=== PATIENT | female | born 1935 | race Caucasian/White ===

== ENCOUNTER 2016-06-07 23:05 | Inpatient (IN) | payer MEDICARE, MEDICAID ==
[~2016-06-07] VITALS: Ht 160 cm; Wt 108.9 kg
[~2016-06-07 23:05] MED LIST: WARF4TAB40
[2016-06-07 23:40] LABS: BASOPHILS % 0.1 % (0.0-2.0); DIFFERENTIAL COMMENT 0; EOSINOPHILS % 0.8 % (0.0-5.0); HEMATOCRIT. 52.6 % (36.0-48.0); HEMOGLOBIN. 17.3 g/dL (12.0-16.0); LYMPHOCYTES % 21.6 % (20.0-50.0); MEAN CORPUSCULAR HGB CONC 32.9 g/dL (31.0-37.0); MEAN CORPUSCULAR VOLUME 100.3 fL (81.0-99.0); MEAN PLATELET VOLUME 11.7 fl (7.4-10.4); MONOCYTES % 8.9 % (2.0-8.0); NEUTROPHILS % 68.6 % (40.0-76.0); PLATELET 165 x1000/uL (130-400); RED BLOOD CELL COUNT 5.24 mill/uL (4.2-5.4); WHITE BLOOD COUNT 14.9 x1000/uL (4.5-11.0)
[2016-06-07 23:47] LABS: CHLORIDE 115 mEq/L (98-107); INDEX HEMOLYSI 2 (1-3); INDEX ICTERIC 1 (1-4); INDEX LIPEMIC 1 (1-3)
[2016-06-07 23:51] LABS: INR 1.2; PROTHROMBIN TIME 12.9 sec
[2016-06-07 23:55] LABS: ALANINE AMINOTRANSFERASE 21 IU/L (13-61); ALBUMIN 3.4 g/dL (3.4-5.0); ANION GAP 14; CALCIUM 8.5 mg/dL (8.5-10.1); CARBON DIOXIDE 26 mEq/L (21-32); LIPASE 141 IU/L (73-393); UREA NITROGEN BLOOD 33 mg/dL (7-21); eGFR 58 mL/min (>60)
[2016-06-08] MEDS ORDERED: INSULIN REGULAR (HUMULIN R) 300UNITS/3ML SUBCUT ONE ×2 (00:15→05:00)
[2016-06-08 01:04] LABS: CLARITY URINE CLOUDY (CLEAR); COLOR URINE YELLOW (YELLOW); GLUCOSE URINE 3+ (NEGATIVE); KETONES URINE NEGATIVE (NEGATIVE); LEUKOCYTE ESTERASE URINE 2+ (NEGATIVE); NITRITE URINE POSITIVE (NEGATIVE); OCCULT BLOOD URINE 1+ (NEGATIVE); PROTEIN URINE 1+ (NEGATIVE); SPECIFIC GRAVITY URINE 1.024 (1.005-1.030); UROBILINOGEN URINE 0.2 E.U./dL (0.2-1.0)
[2016-06-08] MEDS ORDERED: CEFTRIAXONE 2 G PREMIX 50 ML IV ONE (01:15)
[2016-06-08 01:45] LABS: BACTERIA URINE 3+; SQUAMOUS EPITHELIAL CELL URINE FEW /lpf (RARE/1+)
[2016-06-08 01:46] LABS: WBC URINE 25-50 /hpf (0-2)
[2016-06-08] MEDS ORDERED: FUROSEMIDE 40MG/4ML VIAL IVP ONE (02:30)
[2016-06-08 07:30] VITALS: BP 108/73
[2016-06-08 07:56] VITALS: BP 108/73
[2016-06-08] MEDS ORDERED: SODIUM CHLORIDE 0.9% 1,000 ML IV SCH (09:30)
[2016-06-08] MEDS ORDERED: DEXTROSE 50% WATER 50ML SYRINGE IV PRN (09:30)
[2016-06-08] MEDS ORDERED: LACT10SO6 MT (09:33)
[2016-06-08] MEDS ORDERED: PROT40 PO (09:33)
[2016-06-08] MEDS ORDERED: ASPI-864 PO (09:33)
[2016-06-08] MEDS ORDERED: CARV3.1242 PO (09:33)
[2016-06-08] MEDS ORDERED: MULT-1146 PO (09:33)
[2016-06-08] MEDS ORDERED: FURO-151 PO (09:33)
[2016-06-08] MEDS ORDERED: FURO-152 PO (09:33)
[2016-06-08] MEDS ORDERED: LOSA1TAB33 PO (09:33)
[2016-06-08] MEDS ORDERED: ATOR10TA69 PO (09:33)
[2016-06-08] MEDS ORDERED: DOCU-150 PO (09:33)
[2016-06-08] MEDS ORDERED: DIVAL250 PO (09:33)
[2016-06-08] MEDS: ENOXAPARIN 30MG/0.3ML SYR SUBCUT SCH ×2 (09:55→21:25)
[2016-06-08] MEDS: MULTIVITAMINS,THER W-MINERALS TABLET PO SCH ×2 (10:00→11:25)
[2016-06-08] MEDS: INSULIN LISPRO 100 UNITS/ML SUBCUT SCH ×4 (10:01→21:31)
[2016-06-08] MEDS: ASPIRIN 81MG EC TABLET PO SCH (11:24)
[2016-06-08] MEDS: DIVALPROEX SODIUM 250MG ER TABLET PO SCH ×2 (11:25→21:24)
[2016-06-08 12:00] VITALS: BP 115/68
[2016-06-08] MEDS ORDERED: NON PO (12:26)
[2016-06-08] MEDS ORDERED: NA PHOS,M-B/NA PHOS,DI-BA ENEMA 118ML PR SCH (12:30)
[2016-06-08] MEDS: BLOOD SUGAR DIAGNOSTIC STRIP TEST SCH ×3 (12:40→21:25)
[2016-06-08 16:00] VITALS: BP 120/77
[2016-06-08] MEDS: SODIUM CHLORIDE 0.45% 1,000 ML IV SCH (16:00)
[2016-06-08] MEDS: DOCUSATE SODIUM 100MG CAPSULE PO SCH (17:22)
[2016-06-08 20:00] VITALS: BP 109/68
[2016-06-08] MEDS: ATORVASTATIN CALCIUM 10MG TABLET PO SCH (21:24)
[2016-06-08] MEDS: CARVEDILOL 3.125 MG TABLET PO SCH (21:24)
[2016-06-08] MEDS: INSULIN DETEMIR UD 100 UNITS/ML SYR SUBCUT SCH (21:33)
[2016-06-09] VITALS (28 sets, daily range): BP systolic 63–123; BP diastolic 24–109
[2016-06-09] MEDS ORDERED: CEFTRIAXONE 1 G PREMIX 50 ML IV SCH ×2 (03:00)
[2016-06-09 06:37] LABS: BASOPHILS % 0.8 % (0.0-2.0); EOSINOPHILS % 1.4 % (0.0-5.0); HEMATOCRIT. 45.5 % (36.0-48.0); HEMOGLOBIN. 15.2 g/dL (12.0-16.0); LYMPHOCYTES % 16.7 % (20.0-50.0); MEAN CORPUSCULAR HGB CONC 33.3 g/dL (31.0-37.0); MONOCYTES % 7.4 % (2.0-8.0); NEUTROPHILS % 73.7 % (40.0-76.0); PLATELET 118 x1000/uL (130-400); RED BLOOD CELL COUNT 4.59 mill/uL (4.2-5.4); RED CELL DISTRIBUTION WIDTH 13.4 % (11.6-14.6); WHITE BLOOD COUNT 11.8 x1000/uL (4.5-11.0)
[2016-06-09 06:50] LABS: CALCIUM 7.2 mg/dL (8.5-10.1)
[2016-06-09] MEDS: PANTOPRAZOLE 40MG DR TABLET PO SCH (07:40)
[2016-06-09] MEDS ORDERED: HYDROCHLOROTHIAZIDE 12.5MG CAPSULE PO SCH (09:00)
[2016-06-09] MEDS ORDERED: FUROSEMIDE 20MG TABLET PO SCH (09:00)
[2016-06-09] MEDS ORDERED: FUROSEMIDE 40MG/4ML VIAL IVP SCH (09:00)
[2016-06-09] MEDS ORDERED: FUROSEMIDE 40MG TABLET PO SCH (09:00)
[2016-06-09 09:22] LABS: AMMONIA 36 uMol/L (<32); INDEX HEMOLYSI 3 (1-3)
[2016-06-09] MEDS: ASPIRIN 81MG EC TABLET PO SCH (09:28)
[2016-06-09] MEDS: DOCUSATE SODIUM 100MG CAPSULE PO SCH ×2 (09:28→17:00)
[2016-06-09] MEDS: LOSARTAN POTASSIUM 100 MG TABLET PO SCH (09:28)
[2016-06-09] MEDS: MULTIVITAMINS,THER W-MINERALS TABLET PO SCH (09:28)
[2016-06-09] MEDS: CARVEDILOL 3.125 MG TABLET PO SCH ×2 (09:28→19:57)
[2016-06-09] MEDS: DIVALPROEX SODIUM 250MG ER TABLET PO SCH (09:28)
[2016-06-09] MEDS: ENOXAPARIN 30MG/0.3ML SYR SUBCUT SCH ×2 (09:29→21:10)
[2016-06-09 09:32] LABS: T3 FREE 1.66 pg/ml (2.18-3.98); T4 FREE 1.05 ng/dL (0.76-1.46); THYROID STIMULATING HORMONE 0.77 uIU/mL (0.36-3.74)
[2016-06-09 09:34] LABS: INDEX HEMOLYSI 4 (1-3)
[2016-06-09] MEDS: INSULIN LISPRO 100 UNITS/ML SUBCUT SCH ×4 (09:45→21:10)
[2016-06-09] MEDS: INSULIN DETEMIR UD 100 UNITS/ML SYR SUBCUT SCH ×2 (10:23→21:18)
[2016-06-09] MEDS: SODIUM CHLORIDE 0.45% 1,000 ML IV SCH (10:26)
[2016-06-09] MEDS ORDERED: POTASSIUM CHLORIDE INJ 40 MEQ in DEXT 5% WATER 250 ML IV SCH (10:30)
[2016-06-09 10:51] LABS: FOLIC ACID (FOLATE) SERUM > 20.00 ng/mL (>5.38); VITAMIN B12 SERUM 969 pg/mL (211-911)
[2016-06-09 11:06] LABS: PHOSPHORUS 4.5 mg/dL (2.5-4.9)
[2016-06-09 11:16] LABS: MAGNESIUM 2.7 mg/dL (1.8-2.4)
[2016-06-09] MEDS: BLOOD SUGAR DIAGNOSTIC STRIP TEST SCH ×3 (12:40→21:02)
[2016-06-09] MEDS ORDERED: SODIUM CHLORIDE 0.9% 1,000 ML IV SCH (16:15)
[2016-06-09] MEDS ORDERED: SODIUM CHLORIDE 0.9% 1000ML BAG (SEPSIS BOLUS) IV ONE (16:15)
[2016-06-09 16:30] LABS: BG BASE EXCESS -2.7 mmol/L (-2.0-2.0); BG DEOXYHEMOGLOBIN 1.5 % (0.0-5.0); BG FRACTION INSPIRED OXYGEN 40; BG HCO3 ACT 21.2 mmol/L (22.0-26.0); BG METHEMOGLOBIN 0.3 % (0.0-1.5); BG OXYGEN SATURATION 98.5 % (92.0-98.5); BG OXYHEMOGLOBIN 97.2 % (94.0-97.0); BG PCO2 34.4 mmHg (35.0-45.0); BG PH 7.407 (7.350-7.450); BG PO2 128.9 mmHg (75.0-100.0); BG SAMPLE SITE RIGHT BRACHIAL; BG TOTAL HEMOGLOBIN 14.4 g/dL (12.0-18.0); BG VENT MODE MASK - SIMPLE
[2016-06-09 18:11] LABS: EOSINOPHILS % 0.6 % (0.0-5.0); HEMATOCRIT. 43.3 % (36.0-48.0); HEMOGLOBIN. 14.5 g/dL (12.0-16.0); LYMPHOCYTES % 15.4 % (20.0-50.0); MEAN CORPUSCULAR HEMOGLOBIN 32.9 pg (28.0-32.0); MEAN CORPUSCULAR HGB CONC 33.4 g/dL (31.0-37.0); MEAN CORPUSCULAR VOLUME 98.4 fL (81.0-99.0); MEAN PLATELET VOLUME 11.7 fl (7.4-10.4); MONOCYTES % 7.2 % (2.0-8.0); NEUTROPHILS % 75.8 % (40.0-76.0); PLATELET 133 x1000/uL (130-400); RED BLOOD CELL COUNT 4.41 mill/uL (4.2-5.4); RED CELL DISTRIBUTION WIDTH 13.4 % (11.6-14.6); WHITE BLOOD COUNT 13.3 x1000/uL (4.5-11.0)
[2016-06-09 18:21] LABS: CALCIUM 7.2 mg/dL (8.5-10.1)
[2016-06-09] MEDS: NOREPINEPHRINE 4 MG in DEXT 5% WATER 246 ML IV PRN (18:22)
[2016-06-09] MEDS: ATORVASTATIN CALCIUM 10MG TABLET PO SCH (21:08)
[2016-06-09] MEDS: CEFEPIME 2,000 MG in DEXT 5% WATER 100 ML IV SCH (21:53)
[2016-06-09] MEDS: METRONIDAZOLE 500 MG PREMIX 100 ML IV SCH (22:56)
[2016-06-10] VITALS (91 sets, daily range): BP systolic 78–136; BP diastolic 25–97
[2016-06-10] MEDS ORDERED: VANCOMYCIN 1500MG in DEXTROSE 5% WATER 250ML IV NR ×2
[2016-06-10] MEDS: NOREPINEPHRINE 4 MG in DEXT 5% WATER 246 ML IV PRN (04:02)
[2016-06-10] MEDS: METRONIDAZOLE 500 MG PREMIX 100 ML IV SCH ×3 (05:10→21:17)
[2016-06-10] MEDS: SODIUM CHLORIDE 0.45% 1,000 ML IV SCH ×2 (05:11→17:30)
[2016-06-10 05:34] LABS: BASOPHILS % 0.4 % (0.0-2.0); EOSINOPHILS % 1.4 % (0.0-5.0); HEMATOCRIT. 43.4 % (36.0-48.0); HEMOGLOBIN. 14.3 g/dL (12.0-16.0); LYMPHOCYTES % 20.7 % (20.0-50.0); MEAN CORPUSCULAR HEMOGLOBIN 32.9 pg (28.0-32.0); MEAN CORPUSCULAR VOLUME 99.7 fL (81.0-99.0); MEAN PLATELET VOLUME 12.2 fl (7.4-10.4); MONOCYTES % 10.7 % (2.0-8.0); NEUTROPHILS % 66.8 % (40.0-76.0); PLATELET 130 x1000/uL (130-400); RED BLOOD CELL COUNT 4.35 mill/uL (4.2-5.4); RED CELL DISTRIBUTION WIDTH 13.9 % (11.6-14.6); WHITE BLOOD COUNT 13.4 x1000/uL (4.5-11.0)
[2016-06-10 05:48] LABS: AMMONIA 23 uMol/L (<32); INDEX HEMOLYSI 3 (1-3)
[2016-06-10 06:28] LABS: CALCIUM 6.9 mg/dL (8.5-10.1); MAGNESIUM 2.9 mg/dL (1.8-2.4); PHOSPHORUS 4.5 mg/dL (2.5-4.9)
[2016-06-10 07:43] LABS: CREATINE KINASE 754 IU/L (26-192); INDEX HEMOLYSI 2 (1-3)
[2016-06-10] MEDS: BLOOD SUGAR DIAGNOSTIC STRIP TEST SCH ×4 (07:50→21:04)
[2016-06-10] MEDS: INSULIN LISPRO 100 UNITS/ML SUBCUT SCH ×4 (08:20→21:19)
[2016-06-10] MEDS: CARVEDILOL 3.125 MG TABLET PO SCH ×2 (09:00→21:00)
[2016-06-10] MEDS ORDERED: DIVALPROEX SODIUM 250MG DR TABLET PO SCH (09:00)
[2016-06-10] MEDS: LOSARTAN POTASSIUM 100 MG TABLET PO SCH (09:00)
[2016-06-10] MEDS: CEFEPIME 2,000 MG in DEXT 5% WATER 100 ML IV SCH ×2 (09:58→21:17)
[2016-06-10] MEDS: PANTOPRAZOLE 40MG DR TABLET PO SCH (09:59)
[2016-06-10] MEDS: MULTIVITAMINS,THER W-MINERALS TABLET PO SCH (09:59)
[2016-06-10] MEDS: DOCUSATE SODIUM 100MG CAPSULE PO SCH ×2 (09:59→17:00)
[2016-06-10] MEDS: ENOXAPARIN 30MG/0.3ML SYR SUBCUT SCH ×2 (09:59→21:16)
[2016-06-10] MEDS ORDERED: FLUCONAZOLE 200 MG/100ML BAG 100 ML IV SCH (10:00)
[2016-06-10] MEDS: ASPIRIN 81MG EC TABLET PO SCH (10:00)
[2016-06-10] MEDS: INSULIN DETEMIR UD 100 UNITS/ML SYR SUBCUT SCH ×2 (10:02→21:19)
[2016-06-10] MEDS ORDERED: POTASSIUM CHLORIDE INJ 40 MEQ in DEXT 5% WATER 500 ML IV SCH (11:00)
[2016-06-10] MEDS: VALPROATE SODIUM 500 MG in SODIUM CHLORIDE 0.9% 100 ML IV SCH (11:42)
[2016-06-10] MEDS: MICAFUNGIN 100MG in NORMAL SALINE 100ML IV SCH (11:45)
[2016-06-10] MEDS: ATORVASTATIN CALCIUM 10MG TABLET PO SCH (21:16)
[2016-06-11] VITALS (69 sets, daily range): BP systolic 93–149; BP diastolic 36–85
[2016-06-11] MEDS: VALPROATE SODIUM 500 MG in SODIUM CHLORIDE 0.9% 100 ML IV SCH ×3 (00:28→22:38)
[2016-06-11] MEDS: SODIUM CHLORIDE 0.45% 1,000 ML IV SCH (05:40)
[2016-06-11] MEDS: METRONIDAZOLE 500 MG PREMIX 100 ML IV SCH ×3 (05:40→21:04)
[2016-06-11 05:46] LABS: BASOPHILS % 0.3 % (0.0-2.0); EOSINOPHILS % 1.8 % (0.0-5.0); HEMATOCRIT. 40.2 % (36.0-48.0); HEMOGLOBIN. 13.7 g/dL (12.0-16.0); LYMPHOCYTES % 15.5 % (20.0-50.0); MEAN CORPUSCULAR HEMOGLOBIN 33.3 pg (28.0-32.0); MEAN CORPUSCULAR HGB CONC 34.1 g/dL (31.0-37.0); MEAN CORPUSCULAR VOLUME 97.5 fL (81.0-99.0); MEAN PLATELET VOLUME 12.4 fl (7.4-10.4); MONOCYTES % 9.9 % (2.0-8.0); NEUTROPHILS % 72.5 % (40.0-76.0); PLATELET 101 x1000/uL (130-400); RED BLOOD CELL COUNT 4.12 mill/uL (4.2-5.4); RED CELL DISTRIBUTION WIDTH 13.6 % (11.6-14.6); WHITE BLOOD COUNT 7.2 x1000/uL (4.5-11.0)
[2016-06-11 06:02] LABS: ANION GAP 17; CARBON DIOXIDE 20 mEq/L (21-32); CHLORIDE 109 mEq/L (98-107); INDEX HEMOLYSI 2 (1-3); INDEX ICTERIC 1 (1-4); INDEX LIPEMIC 1 (1-3); UREA NITROGEN BLOOD 27 mg/dL (7-21); eGFR > 60 mL/min (>60)
[2016-06-11] MEDS ORDERED: POTASSIUM CHLORIDE INJ 40 MEQ in DEXT 5% WATER 250 ML IV SCH (07:30)
[2016-06-11] MEDS: BLOOD SUGAR DIAGNOSTIC STRIP TEST SCH ×4 (07:50→21:03)
[2016-06-11] MEDS: CARVEDILOL 3.125 MG TABLET PO SCH ×2 (09:00→20:50)
[2016-06-11] MEDS: LOSARTAN POTASSIUM 100 MG TABLET PO SCH (09:00)
[2016-06-11] MEDS: CEFEPIME 2,000 MG in DEXT 5% WATER 100 ML IV SCH ×2 (09:47→21:03)
[2016-06-11] MEDS: ENOXAPARIN 30MG/0.3ML SYR SUBCUT SCH ×2 (09:48→21:03)
[2016-06-11] MEDS: INSULIN LISPRO 100 UNITS/ML SUBCUT SCH ×4 (09:49→21:02)
[2016-06-11] MEDS: INSULIN DETEMIR UD 100 UNITS/ML SYR SUBCUT SCH ×2 (09:50→22:42)
[2016-06-11] MEDS: DOCUSATE SODIUM 100MG CAPSULE PO SCH ×2 (09:50→17:22)
[2016-06-11] MEDS: ASPIRIN 81MG EC TABLET PO SCH (09:50)
[2016-06-11] MEDS: MULTIVITAMINS,THER W-MINERALS TABLET PO SCH (09:50)
[2016-06-11] MEDS: PANTOPRAZOLE 40MG DR TABLET PO SCH (09:50)
[2016-06-11] MEDS: MICAFUNGIN 100MG in NORMAL SALINE 100ML IV SCH (11:20)
[2016-06-11] MEDS ORDERED: VANCOMYCIN 1 G PREMIX 200 ML IV SCH ×2 (13:00→16:00)
[2016-06-11 17:20] LABS: ANTI-NUCLEAR ANTIBODIES DIRECT Negative (Negative)
[2016-06-11] MEDS: ATORVASTATIN CALCIUM 10MG TABLET PO SCH (21:03)
[2016-06-12] VITALS (47 sets, daily range): BP systolic 98–133; BP diastolic 47–64
[2016-06-12] MEDS: SODIUM CHLORIDE 0.45% 1,000 ML IV SCH ×2 (02:10→21:51)
[2016-06-12 05:58] LABS: BASOPHILS % 0.3 % (0.0-2.0); HEMATOCRIT. 39.6 % (36.0-48.0); HEMOGLOBIN. 13.5 g/dL (12.0-16.0); LYMPHOCYTES % 16.7 % (20.0-50.0); MEAN CORPUSCULAR HEMOGLOBIN 33.5 pg (28.0-32.0); MEAN CORPUSCULAR HGB CONC 34.1 g/dL (31.0-37.0); MEAN CORPUSCULAR VOLUME 98.1 fL (81.0-99.0); MEAN PLATELET VOLUME 12.7 fl (7.4-10.4); MONOCYTES % 11.6 % (2.0-8.0); NEUTROPHILS % 69.4 % (40.0-76.0); PLATELET 99 x1000/uL (130-400); RED BLOOD CELL COUNT 4.04 mill/uL (4.2-5.4); RED CELL DISTRIBUTION WIDTH 13.5 % (11.6-14.6); WHITE BLOOD COUNT 6.5 x1000/uL (4.5-11.0)
[2016-06-12 06:19] LABS: ANION GAP 14; CALCIUM 7.6 mg/dL (8.5-10.1); CARBON DIOXIDE 22 mEq/L (21-32); CHLORIDE 111 mEq/L (98-107); INDEX HEMOLYSI 2 (1-3); INDEX ICTERIC 1 (1-4); INDEX LIPEMIC 1 (1-3); MAGNESIUM 2.7 mg/dL (1.8-2.4); PHOSPHORUS 1.6 mg/dL (2.5-4.9); UREA NITROGEN BLOOD 13 mg/dL (7-21); eGFR > 60 mL/min (>60)
[2016-06-12] MEDS: METRONIDAZOLE 500 MG PREMIX 100 ML IV SCH ×3 (06:39→21:48)
[2016-06-12] MEDS ORDERED: POTASSIUM PHOS,M-BASIC-D-BASIC 20 MMOL in DEXT 5% WATER 243.3333 ML IV ONE (07:30)
[2016-06-12 08:00] LABS: BG BASE EXCESS -4.5 mmol/L (-2.0-2.0); BG CARBOXYHEMOGLOBIN 0.4 % (0.5-1.5); BG DEOXYHEMOGLOBIN 0.9 % (0.0-5.0); BG FRACTION INSPIRED OXYGEN 40; BG METHEMOGLOBIN 0.3 % (0.0-1.5); BG OXYGEN SATURATION 99.1 % (92.0-98.5); BG OXYHEMOGLOBIN 98.4 % (94.0-97.0); BG PCO2 34.9 mmHg (35.0-45.0); BG PH 7.375 (7.350-7.450); BG PO2 172.1 mmHg (75.0-100.0); BG SAMPLE SITE LEFT BRACHIAL; BG TOTAL HEMOGLOBIN 13.8 g/dL (12.0-18.0); BG VENT MODE MASK - SIMPLE
[2016-06-12] MEDS: CARVEDILOL 3.125 MG TABLET PO SCH ×2 (08:09→21:00)
[2016-06-12] MEDS: BLOOD SUGAR DIAGNOSTIC STRIP TEST SCH ×4 (08:09→21:42)
[2016-06-12] MEDS: LOSARTAN POTASSIUM 100 MG TABLET PO SCH (08:09)
[2016-06-12] MEDS: ENOXAPARIN 30MG/0.3ML SYR SUBCUT SCH ×2 (08:31→21:00)
[2016-06-12] MEDS: ASPIRIN 81MG EC TABLET PO SCH (08:31)
[2016-06-12] MEDS: DOCUSATE SODIUM SUGAR FREE 100MG/10ML UDC NG SCH ×2 (09:01→16:47)
[2016-06-12] MEDS: PANTOPRAZOLE 40MG DR TABLET PO SCH (09:01)
[2016-06-12] MEDS: INSULIN LISPRO 100 UNITS/ML SUBCUT SCH ×4 (09:01→21:50)
[2016-06-12] MEDS: MULTIVITAMINS,THER W-MINERALS TABLET PO SCH (09:01)
[2016-06-12] MEDS: CEFEPIME 2,000 MG in DEXT 5% WATER 100 ML IV SCH ×2 (09:01→21:48)
[2016-06-12] MEDS: MICAFUNGIN 100MG in NORMAL SALINE 100ML IV SCH (10:07)
[2016-06-12] MEDS: INSULIN DETEMIR UD 100 UNITS/ML SYR SUBCUT SCH ×2 (10:07→22:54)
[2016-06-12] MEDS: VANCOMYCIN 1250MG in DEXTROSE 5% WATER 250ML IV SCH (11:33)
[2016-06-12] MEDS: VALPROATE SODIUM 500 MG in SODIUM CHLORIDE 0.9% 100 ML IV SCH ×2 (11:37→22:53)
[2016-06-12] MEDS: ATORVASTATIN CALCIUM 10MG TABLET PO SCH (21:49)
[2016-06-13] VITALS (32 sets, daily range): BP systolic 100–140; BP diastolic 35–62
[2016-06-13 05:23] LABS: BASOPHILS % 0.2 % (0.0-2.0); EOSINOPHILS % 2.4 % (0.0-5.0); HEMATOCRIT. 28.9 % (36.0-48.0); HEMOGLOBIN. 9.9 g/dL (12.0-16.0); LYMPHOCYTES % 19.8 % (20.0-50.0); MEAN CORPUSCULAR HEMOGLOBIN 33.8 pg (28.0-32.0); MEAN CORPUSCULAR HGB CONC 34.4 g/dL (31.0-37.0); MEAN CORPUSCULAR VOLUME 98.4 fL (81.0-99.0); MEAN PLATELET VOLUME 12.3 fl (7.4-10.4); MONOCYTES % 13.7 % (2.0-8.0); NEUTROPHILS % 63.9 % (40.0-76.0); PLATELET 77 x1000/uL (130-400); RED BLOOD CELL COUNT 2.94 mill/uL (4.2-5.4); RED CELL DISTRIBUTION WIDTH 13.6 % (11.6-14.6); WHITE BLOOD COUNT 4.6 x1000/uL (4.5-11.0)
[2016-06-13 05:42] LABS: ANION GAP 11; CALCIUM 6.4 mg/dL (8.5-10.1); CARBON DIOXIDE 24 mEq/L (21-32); CHLORIDE 114 mEq/L (98-107); INDEX HEMOLYSI 2 (1-3); INDEX ICTERIC 1 (1-4); INDEX LIPEMIC 1 (1-3); MAGNESIUM 2.1 mg/dL (1.8-2.4); PHOSPHORUS 1.5 mg/dL (2.5-4.9); UREA NITROGEN BLOOD 9 mg/dL (7-21); VALPROIC ACID 31.1 ug/mL (50-100); eGFR > 60 mL/min (>60)
[2016-06-13] MEDS: METRONIDAZOLE 500 MG PREMIX 100 ML IV SCH ×3 (05:54→21:34)
[2016-06-13] MEDS ORDERED: POTASSIUM PHOS,M-BASIC-D-BASIC 20 MMOL in DEXT 5% WATER 243.3333 ML IV SCH (07:00)
[2016-06-13] MEDS: BLOOD SUGAR DIAGNOSTIC STRIP TEST SCH ×4 (07:50→21:12)
[2016-06-13] MEDS: ENOXAPARIN 30MG/0.3ML SYR SUBCUT SCH ×2 (09:00→21:00)
[2016-06-13] MEDS: ASPIRIN 81MG EC TABLET PO SCH (09:00)
[2016-06-13] MEDS: PANTOPRAZOLE 40MG DR TABLET PO SCH (09:56)
[2016-06-13] MEDS: CARVEDILOL 3.125 MG TABLET PO SCH ×2 (09:56→21:34)
[2016-06-13] MEDS: DOCUSATE SODIUM SUGAR FREE 100MG/10ML UDC NG SCH ×2 (09:56→17:49)
[2016-06-13] MEDS: MULTIVITAMINS,THER W-MINERALS TABLET PO SCH (09:56)
[2016-06-13] MEDS: VANCOMYCIN 1250MG in DEXTROSE 5% WATER 250ML IV SCH (09:56)
[2016-06-13] MEDS: LOSARTAN POTASSIUM 100 MG TABLET PO SCH (09:56)
[2016-06-13] MEDS: CEFEPIME 2,000 MG in DEXT 5% WATER 100 ML IV SCH ×2 (09:57→22:00)
[2016-06-13] MEDS: INSULIN DETEMIR UD 100 UNITS/ML SYR SUBCUT SCH ×2 (09:58→21:38)
[2016-06-13] MEDS: INSULIN LISPRO 100 UNITS/ML SUBCUT SCH ×4 (10:06→21:37)
[2016-06-13] MEDS: VALPROATE SODIUM 500 MG in SODIUM CHLORIDE 0.9% 100 ML IV SCH ×2 (10:08→17:48)
[2016-06-13] MEDS ORDERED: CALCIUM CHLORIDE 1,000 MG in DEXT 5% WATER 90 ML IV NR (10:30)
[2016-06-13 11:37] LABS: HEMOGLOBIN 13.1 g/dL (12.0-16.0); MEAN CORPUSCULAR HEMOGLOBIN 33.1 pg (28.0-32.0); MEAN CORPUSCULAR HGB CONC 33.5 g/dL (31.0-37.0); MEAN CORPUSCULAR VOLUME 98.7 fL (81.0-99.0); PLATELET 106 x1000/uL (130-400); RED BLOOD CELL COUNT 3.95 mill/uL (4.2-5.4); RED CELL DISTRIBUTION WIDTH 13.6 % (11.6-14.6); WHITE BLOOD COUNT 5.8 x1000/uL (4.5-11.0)
[2016-06-13] MEDS: MICAFUNGIN 100MG in NORMAL SALINE 100ML IV SCH (12:52)
[2016-06-13] MEDS: SODIUM CHLORIDE 0.45% 1,000 ML IV SCH (12:52)
[2016-06-13] MEDS: ATORVASTATIN CALCIUM 10MG TABLET PO SCH (21:33)
[2016-06-14] VITALS (16 sets, daily range): BP systolic 102–127; BP diastolic 45–65
[2016-06-14] MEDS: VALPROATE SODIUM 500 MG in SODIUM CHLORIDE 0.9% 100 ML IV SCH ×3 (01:13→18:31)
[2016-06-14] MEDS: BLOOD SUGAR DIAGNOSTIC STRIP TEST SCH ×4 (05:07→21:00)
[2016-06-14] MEDS: METRONIDAZOLE 500 MG PREMIX 100 ML IV SCH ×3 (05:17→22:23)
[2016-06-14] MEDS: INSULIN LISPRO 100 UNITS/ML SUBCUT SCH ×4 (05:18→22:26)
[2016-06-14] MEDS: PANTOPRAZOLE 40MG DR TABLET PO SCH (05:19)
[2016-06-14 07:19] LABS: COMPLEMENT C3 170 mg/dL (82-167); COMPLEMENT C4 37 mg/dL (14-44)
[2016-06-14 07:38] LABS: ANION GAP 14; CARBON DIOXIDE 23 mEq/L (21-32); CHLORIDE 110 mEq/L (98-107); INDEX HEMOLYSI 1 (1-3); INDEX ICTERIC 1 (1-4); INDEX LIPEMIC 1 (1-3); MAGNESIUM 1.8 mg/dL (1.8-2.4); PHOSPHORUS 1.6 mg/dL (2.5-4.9); UREA NITROGEN BLOOD 6 mg/dL (7-21); eGFR > 60 mL/min (>60)
[2016-06-14 08:30] LABS: BASOPHILS % 0.3 % (0.0-2.0); EOSINOPHILS % 2.7 % (0.0-5.0); HEMATOCRIT. 37.7 % (36.0-48.0); HEMOGLOBIN. 12.7 g/dL (12.0-16.0); LYMPHOCYTES % 19.6 % (20.0-50.0); MEAN CORPUSCULAR HEMOGLOBIN 33.2 pg (28.0-32.0); MEAN CORPUSCULAR HGB CONC 33.6 g/dL (31.0-37.0); MEAN CORPUSCULAR VOLUME 98.7 fL (81.0-99.0); MEAN PLATELET VOLUME 12.6 fl (7.4-10.4); MONOCYTES % 12.5 % (2.0-8.0); NEUTROPHILS % 64.9 % (40.0-76.0); PLATELET 111 x1000/uL (130-400); RED BLOOD CELL COUNT 3.82 mill/uL (4.2-5.4); RED CELL DISTRIBUTION WIDTH 13.7 % (11.6-14.6); WHITE BLOOD COUNT 5.5 x1000/uL (4.5-11.0)
[2016-06-14] MEDS: VANCOMYCIN 1250MG in DEXTROSE 5% WATER 250ML IV SCH (08:38)
[2016-06-14] MEDS ORDERED: POTASSIUM PHOS,M-BASIC-D-BASIC 20 MMOL in DEXT 5% WATER 243.3333 ML IV SCH (10:00)
[2016-06-14] MEDS: CARVEDILOL 3.125 MG TABLET PO SCH ×2 (10:31→20:57)
[2016-06-14] MEDS: DOCUSATE SODIUM SUGAR FREE 100MG/10ML UDC NG SCH ×2 (10:31→18:32)
[2016-06-14] MEDS: ASPIRIN 81MG EC TABLET PO SCH (10:31)
[2016-06-14] MEDS: MULTIVITAMINS,THER W-MINERALS TABLET PO SCH (10:32)
[2016-06-14] MEDS: LOSARTAN POTASSIUM 100 MG TABLET PO SCH (10:32)
[2016-06-14] MEDS: CEFEPIME 2,000 MG in DEXT 5% WATER 100 ML IV SCH ×2 (10:32→22:24)
[2016-06-14] MEDS: INSULIN DETEMIR UD 100 UNITS/ML SYR SUBCUT SCH ×2 (10:34→22:27)
[2016-06-14] MEDS: ENOXAPARIN 30MG/0.3ML SYR SUBCUT SCH ×2 (12:58→20:56)
[2016-06-14] MEDS: MICAFUNGIN 100MG in NORMAL SALINE 100ML IV SCH (12:58)
[2016-06-14] MEDS ORDERED: SODIUM CHLORIDE 0.9% 10ML VIAL ONE (13:35)
[2016-06-14] MEDS ORDERED: IOHEXOL-300 100 ML BOTTLE ONE (13:35)
[2016-06-14] MEDS ORDERED: POTASSIUM CHLORIDE INJ 40 MEQ in DEXT 5% WATER 250 ML IV SCH (14:00)
[2016-06-14] MEDS ORDERED: DIATR MEGLU/DIATRIZOATE SOLN 30ML PO ONE ×2 (18:00)
[2016-06-14] MEDS: ATORVASTATIN CALCIUM 10MG TABLET PO SCH (20:57)
[2016-06-15] VITALS (15 sets, daily range): BP systolic 100–133; BP diastolic 47–69
[2016-06-15] MEDS: VALPROATE SODIUM 500 MG in SODIUM CHLORIDE 0.9% 100 ML IV SCH ×3 (01:16→17:58)
[2016-06-15] MEDS: PANTOPRAZOLE 40MG DR TABLET PO SCH (05:03)
[2016-06-15] MEDS: METRONIDAZOLE 500 MG PREMIX 100 ML IV SCH ×2 (05:03→13:40)
[2016-06-15 06:55] LABS: HEMATOCRIT. 36.5 % (36.0-48.0); HEMOGLOBIN. 12.4 g/dL (12.0-16.0); MEAN CORPUSCULAR HEMOGLOBIN 33.2 pg (28.0-32.0); MEAN CORPUSCULAR VOLUME 97.7 fL (81.0-99.0); MEAN PLATELET VOLUME 12.1 fl (7.4-10.4); PLATELET 135 x1000/uL (130-400); RED BLOOD CELL COUNT 3.74 mill/uL (4.2-5.4); RED CELL DISTRIBUTION WIDTH 13.5 % (11.6-14.6); WHITE BLOOD COUNT 4.8 x1000/uL (4.5-11.0)
[2016-06-15] MEDS: BLOOD SUGAR DIAGNOSTIC STRIP TEST SCH ×4 (07:04→20:43)
[2016-06-15 07:18] LABS: ANION GAP 13; CALCIUM 6.9 mg/dL (8.5-10.1); CARBON DIOXIDE 23 mEq/L (21-32); CHLORIDE 110 mEq/L (98-107); INDEX HEMOLYSI 1 (1-3); INDEX ICTERIC 1 (1-4); INDEX LIPEMIC 1 (1-3); UREA NITROGEN BLOOD 7 mg/dL (7-21); VALPROIC ACID 59.7 ug/mL (50-100); eGFR > 60 mL/min (>60)
[2016-06-15 07:29] LABS: DIFFERENTIAL COMMENT 1
[2016-06-15] MEDS: INSULIN LISPRO 100 UNITS/ML SUBCUT SCH ×4 (07:42→21:40)
[2016-06-15 08:05] LABS: PHOSPHORUS < 0.1 mg/dL (2.5-4.9)
[2016-06-15] MEDS: VANCOMYCIN 1250MG in DEXTROSE 5% WATER 250ML IV SCH (08:22)
[2016-06-15] MEDS: ENOXAPARIN 30MG/0.3ML SYR SUBCUT SCH ×2 (08:22→21:43)
[2016-06-15] MEDS: ASPIRIN 81MG EC TABLET PO SCH (08:24)
[2016-06-15] MEDS: MULTIVITAMINS,THER W-MINERALS TABLET PO SCH (08:24)
[2016-06-15] MEDS: LOSARTAN POTASSIUM 100 MG TABLET PO SCH (08:24)
[2016-06-15] MEDS: CARVEDILOL 3.125 MG TABLET PO SCH ×2 (08:25→21:42)
[2016-06-15] MEDS: DOCUSATE SODIUM SUGAR FREE 100MG/10ML UDC NG SCH ×2 (08:26→17:55)
[2016-06-15] MEDS: POTASSIUM CHLORIDE 20 MEQ/PACKET PO SCH (09:21)
[2016-06-15] MEDS: CEFEPIME 2,000 MG in DEXT 5% WATER 100 ML IV SCH ×2 (09:22→22:50)
[2016-06-15] MEDS ORDERED: POTASSIUM PHOS,M-BASIC-D-BASIC 30 MMOL in DEXT 5% WATER 500 ML IV SCH (10:00)
[2016-06-15] MEDS: INSULIN DETEMIR UD 100 UNITS/ML SYR SUBCUT SCH ×2 (10:30→21:41)
[2016-06-15 11:02] LABS: PLATELET ESTIMATE NORMAL
[2016-06-15] MEDS: MICAFUNGIN 100MG in NORMAL SALINE 100ML IV SCH (11:38)
[2016-06-15] MEDS ORDERED: TEMAZEPAM 15MG CAPSULE PO PRN (20:30)
[2016-06-15] MEDS: ATORVASTATIN CALCIUM 10MG TABLET PO SCH (21:41)
[2016-06-15] MEDS: METRONIDAZOLE 500MG TABLET PO SCH (22:50)
[2016-06-16] VITALS (14 sets, daily range): BP systolic 107–145; BP diastolic 45–83
[2016-06-16] MEDS: VALPROATE SODIUM 500 MG in SODIUM CHLORIDE 0.9% 100 ML IV SCH ×3 (01:16→18:48)
[2016-06-16] MEDS: VANCOMYCIN 1250MG in DEXTROSE 5% WATER 250ML IV SCH ×2 (01:20→20:47)
[2016-06-16] MEDS: METRONIDAZOLE 500MG TABLET PO SCH ×2 (06:22→14:04)
[2016-06-16] MEDS: PANTOPRAZOLE 40MG DR TABLET PO SCH (06:22)
[2016-06-16 06:37] LABS: HEMATOCRIT. 39.5 % (36.0-48.0); HEMOGLOBIN. 13.4 g/dL (12.0-16.0); MEAN CORPUSCULAR HEMOGLOBIN 33.6 pg (28.0-32.0); MEAN CORPUSCULAR VOLUME 98.7 fL (81.0-99.0); MEAN PLATELET VOLUME 11.7 fl (7.4-10.4); PLATELET 146 x1000/uL (130-400); RED CELL DISTRIBUTION WIDTH 13.7 % (11.6-14.6); WHITE BLOOD COUNT 5.7 x1000/uL (4.5-11.0)
[2016-06-16 06:50] LABS: CHLORIDE 112 mEq/L (98-107); INDEX HEMOLYSI 3 (1-3); INDEX ICTERIC 1 (1-4); INDEX LIPEMIC 1 (1-3)
[2016-06-16] MEDS: BLOOD SUGAR DIAGNOSTIC STRIP TEST SCH ×4 (06:59→21:12)
[2016-06-16 07:05] LABS: ANION GAP 13; CALCIUM 7.4 mg/dL (8.5-10.1); CARBON DIOXIDE 21 mEq/L (21-32); MAGNESIUM 2.1 mg/dL (1.8-2.4); PHOSPHORUS 2.1 mg/dL (2.5-4.9); UREA NITROGEN BLOOD 8 mg/dL (7-21); eGFR > 60 mL/min (>60)
[2016-06-16 07:11] LABS: DIFFERENTIAL COMMENT 1
[2016-06-16] MEDS: LOSARTAN POTASSIUM 100 MG TABLET PO SCH (08:04)
[2016-06-16] MEDS: DOCUSATE SODIUM SUGAR FREE 100MG/10ML UDC NG SCH ×2 (08:04→17:00)
[2016-06-16] MEDS: ENOXAPARIN 30MG/0.3ML SYR SUBCUT SCH ×2 (08:04→21:08)
[2016-06-16] MEDS: POTASSIUM CHLORIDE 20 MEQ/PACKET PO SCH (08:04)
[2016-06-16] MEDS: ASPIRIN 81MG EC TABLET PO SCH (08:04)
[2016-06-16] MEDS: MULTIVITAMINS,THER W-MINERALS TABLET PO SCH (08:04)
[2016-06-16] MEDS: INSULIN LISPRO 100 UNITS/ML SUBCUT SCH ×4 (08:06→21:00)
[2016-06-16] MEDS: CEFEPIME 2,000 MG in DEXT 5% WATER 100 ML IV SCH (09:05)
[2016-06-16 09:06] LABS: PLATELET ESTIMATE NORMAL
[2016-06-16] MEDS ORDERED: POTASSIUM PHOS,M-BASIC-D-BASIC 15 MMOL in DEXT 5% WATER 245 ML IV NR (10:00)
[2016-06-16] MEDS: INSULIN DETEMIR UD 100 UNITS/ML SYR SUBCUT SCH (10:30)
[2016-06-16] MEDS: MICAFUNGIN 100MG in NORMAL SALINE 100ML IV SCH (11:45)
[2016-06-16] MEDS ORDERED: POTASSIUM PHOS,M-BASIC-D-BASIC 15 MMOL in DEXT 5% WATER 245 ML IV ONE (12:00)
[2016-06-16] MEDS: CARVEDILOL 3.125 MG TABLET PO SCH ×2 (12:18→20:54)
[2016-06-16] MEDS: METOCLOPRAMIDE HCL 10MG TABLET PO SCH ×2 (12:18→18:48)
[2016-06-16] MEDS ORDERED: CEFEPIME 2,000 MG in DEXT 5% WATER 100 ML IV SCH (18:09)
[2016-06-16] MEDS: ATORVASTATIN CALCIUM 10MG TABLET PO SCH (20:54)
== END 2016-06-16 23:20 | DRG 871 ==
LOC: ER 23:05 → 7WST 06-08 02:07 → CVICU 06-09 15:54 → 3WST 06-13 16:10
PROVIDERS: ADMIT Internal Medicine; ATTEND Internal Medicine
PROC: 02HV33Z Insertion of Infusion Device into Superior Vena Cava, Percutaneous Approach (ICD-10-PCS; principal; 2016-06-10)
PROC: B548ZZA Ultrasonography of Superior Vena Cava, Guidance (ICD-10-PCS; 2016-06-10)
DX: A41.9 Sepsis, unspecified organism (principal); G92 Toxic encephalopathy; N17.0 Acute kidney failure with tubular necrosis; E13.10 Other specified diabetes mellitus with ketoacidosis without coma; J96.01 Acute respiratory failure with hypoxia; R65.21 Severe sepsis with septic shock; E87.0 Hyperosmolality and hypernatremia; B37.49 Other urogenital candidiasis; I13.0 Hypertensive heart and chronic kidney disease with heart failure and stage 1 through stage 4 chronic kidney disease, or unspecified chronic kidney disease; I42.9 Cardiomyopathy, unspecified; I50.40 Unspecified combined systolic (congestive) and diastolic (congestive) heart failure; K59.39 Other megacolon; E66.01 Morbid (severe) obesity due to excess calories; E87.6 Hypokalemia; I12.9 Hypertensive chronic kidney disease with stage 1 through stage 4 chronic kidney disease, or unspecified chronic kidney disease; N18.1 Chronic kidney disease, stage 1; D64.9 Anemia, unspecified; D69.6 Thrombocytopenia, unspecified; E78.5 Hyperlipidemia, unspecified; E83.39 Other disorders of phosphorus metabolism; E83.51 Hypocalcemia; F03.90 Unspecified dementia, unspecified severity, without behavioral disturbance, psychotic disturbance, mood disturbance, and anxiety; G40.909 Epilepsy, unspecified, not intractable, without status epilepticus; I25.10 Atherosclerotic heart disease of native coronary artery without angina pectoris; I48.91 Unspecified atrial fibrillation; E11.22 Type 2 diabetes mellitus with diabetic chronic kidney disease; E11.65 Type 2 diabetes mellitus with hyperglycemia; R40.2420 Glasgow coma scale score 9-12, unspecified time; R41.3 Other amnesia; G93.89 Other specified disorders of brain; K21.9 Gastro-esophageal reflux disease without esophagitis; N20.0 Calculus of kidney; Z79.01 Long term (current) use of anticoagulants; I25.2 Old myocardial infarction; Z86.718 Personal history of other venous thrombosis and embolism; Z86.73 Personal history of transient ischemic attack (TIA), and cerebral infarction without residual deficits; Z87.440 Personal history of urinary (tract) infections; Z98.61 Coronary angioplasty status; Z98.890 Other specified postprocedural states; Z79.4 Long term (current) use of insulin
CPT/HCPCS: 36415; 36569; 36600; 70450; 71010; 74000; 74150; 74178; 76937; 80048; 80053; 80165; 80202; 81001; 82140; 82375; 82550; 82607; 82728; 82746; 82805; 82962; 83036; 83605; 83690; 83735; 84100; 84439; 84443; 84481; 85025; 85027; 85610; 85730; 86038; 86140; 86160; 87040; 87086; 92610; 93005; 93306; 93970; 96372; 97163; 97165; 99285; A4216; A6261; C1725; C1893; J0692; J0696; J1450; J1650; J1815; J1940; J2248; J3370; J3480; J3490; J7030; J7040; J7050; J7060; J8597; Q9963; Q9967

== ENCOUNTER 2017-11-11 09:00 | Inpatient (IN) | payer MEDICARE, MEDICAID ==
[2017-11-11] VITALS (37 sets, daily range): BP systolic 76–142; BP diastolic 36–92
[~2017-11-11] VITALS: Ht 167.6 cm; Wt 102.5 kg
[~2017-11-11 09:00] MED LIST changes: +ASPI-864 PO; +ATOR10TA69 PO; +CARV3.1242 PO; +CLOP75TA15 PO; +DIVAL250 PO; +DOCU-150 PO; +FURO-152 PO; +KEPP500 PO; +MULT-1146 PO; +POTA10TA11 PO; -WARF4TAB40
[2017-11-11] MEDS ORDERED: ACETAMINOPHEN 325MG TABLET PO STA (09:22)
[2017-11-11] MEDS ORDERED: PIPERACILLIN/TAZ 3.375G PREMIX 50 ML IV ONE (09:30)
[2017-11-11] MEDS ORDERED: LEVETIRACETAM 500MG PREMIX 100 ML IV ONE (09:30)
[2017-11-11] MEDS ORDERED: VANCOMYCIN 1 G PREMIX 200 ML IV ONE (09:30)
[2017-11-11] MEDS ORDERED: NOREPINEPHRINE 4 MG in DEXT 5% WATER 246 ML IV ONE ×2 (09:30→10:00)
[2017-11-11] MEDS ORDERED: ACETAMINOPHEN 650MG SUPP PR ONE (09:30)
[2017-11-11] MEDS ORDERED: SODIUM CHLORIDE 0.9% 1000ML BAG (SEPSIS BOLUS) IV ONE (09:30)
[2017-11-11 09:41] LABS: BASOPHILS % 0.9 % (0.0-2.0); HEMATOCRIT. 43.2 % (36.0-48.0); HEMOGLOBIN. 13.9 g/dL (12.0-16.0); LYMPHOCYTES % 18.1 % (20.0-50.0); MEAN CORPUSCULAR HEMOGLOBIN 32.5 pg (28.0-32.0); MEAN CORPUSCULAR VOLUME 100.9 fL (81.0-99.0); MONOCYTES % 10.6 % (2.0-8.0); NEUTROPHILS % 70.4 % (40.0-76.0); PLATELET 197 x1000/uL (130-400); RED BLOOD CELL COUNT 4.28 mill/uL (4.2-5.4); RED CELL DISTRIBUTION WIDTH 16.6 % (11.6-14.6)
[2017-11-11 09:48] LABS: CHLORIDE 115 mEq/L (98-107)
[2017-11-11 09:48] LABS: BG BASE EXCESS -4.9 mmol/L (-2.0-2.0); BG CARBOXYHEMOGLOBIN 0.6 % (0.5-1.5); BG DEOXYHEMOGLOBIN 2.9 % (0.0-5.0); BG HCO3 ACT 18.2 mmol/L (22.0-26.0); BG METHEMOGLOBIN 1.2 % (0.0-1.5); BG OXYHEMOGLOBIN 95.3 % (94.0-97.0); BG PCO2 29.5 mmHg (35.0-45.0); BG PH 7.409 (7.350-7.450); BG PO2 96.1 mmHg (75.0-100.0); BG SAMPLE SITE RIGHT RADIAL; BG TIDAL VOLUME(mL) 500 mL; BG TOTAL HEMOGLOBIN 15.3 g/dL (12.0-18.0); BG VENT MODE VENT - A/C; BG VENT RATE 12 set
[2017-11-11 09:49] LABS: INR 1.2; PARTIAL THROMBOPLASTIN TIME 25.4 sec (23.4-31.0); PROTHROMBIN TIME 11.8 sec (9.1-11.1)
[2017-11-11 09:52] LABS: AMMONIA 17 uMol/L (<32)
[2017-11-11 10:00] LABS: CARBAMAZEPINE < 0.5 ug/mL (4-12); PHENOBARBITAL 11.8 ug/mL (15.0-40.0)
[2017-11-11] MEDS ORDERED: LIDOCAINE HCL/PF 1% 10 MG/ML 30ML VIAL ONE (10:13)
[2017-11-11 10:44] LABS: CLARITY URINE TURBID (CLEAR); COLOR URINE YELLOW (YELLOW); KETONES URINE NEGATIVE (NEGATIVE); LEUKOCYTE ESTERASE URINE 3+ (NEGATIVE); NITRITE URINE NEGATIVE (NEGATIVE); OCCULT BLOOD URINE 2+ (NEGATIVE); PH URINE 7.5 (4.5-8.0); PROTEIN URINE 2+ (NEGATIVE); SPECIFIC GRAVITY URINE 1.015 (1.005-1.030)
[2017-11-11] MEDS ORDERED: NOREPINEPHRINE 4 MG in DEXT 5% WATER 246 ML IV NR (12:30)
[2017-11-11] MEDS: NOREPINEPHRINE 8 MG in DEXT 5% WATER 242 ML IV PRN ×3 (16:25→23:48)
[2017-11-11] MEDS: SODIUM CHLORIDE 0.45% 1,000 ML IV SCH (18:53)
[2017-11-11] MEDS: PHENYLEPHRINE 20 MG in DEXT 5% WATER 248 ML IV PRN ×2 (21:42→23:48)
[2017-11-11] MEDS: LEVETIRACETAM 500 MG in SODIUM CHLORIDE 0.9% 100 ML IV SCH (21:47)
[2017-11-12] VITALS (98 sets, daily range): BP systolic 58–143; BP diastolic 29–68
[2017-11-12] MEDS: SODIUM CHLORIDE 0.45% 1,000 ML IV SCH ×2 (00:09→04:35)
[2017-11-12] MEDS: ENOXAPARIN 30MG/0.3ML SYR SUBCUT SCH ×3 (00:09→21:11)
[2017-11-12] MEDS: PHENYLEPHRINE 20 MG in DEXT 5% WATER 248 ML IV PRN (03:21)
[2017-11-12] MEDS: NOREPINEPHRINE 8 MG in DEXT 5% WATER 242 ML IV PRN ×4 (04:35→20:20)
[2017-11-12 06:08] LABS: BASOPHILS % 0.4 % (0.0-2.0); HEMOGLOBIN. 13.8 g/dL (12.0-16.0); LYMPHOCYTES % 11.3 % (20.0-50.0); MEAN CORPUSCULAR HEMOGLOBIN 32.9 pg (28.0-32.0); MEAN CORPUSCULAR VOLUME 100.4 fL (81.0-99.0); MEAN PLATELET VOLUME 13.1 fl (7.4-10.4); MONOCYTES % 6.6 % (2.0-8.0); NEUTROPHILS % 81.7 % (40.0-76.0); PLATELET 150 x1000/uL (130-400); RED BLOOD CELL COUNT 4.19 mill/uL (4.2-5.4); RED CELL DISTRIBUTION WIDTH 16.3 % (11.6-14.6)
[2017-11-12 06:26] LABS: PHOSPHORUS 2.9 mg/dL (2.5-4.9)
[2017-11-12 07:36] LABS: BG BASE EXCESS -4.9 mmol/L (-2.0-2.0); BG CARBOXYHEMOGLOBIN 0.6 % (0.5-1.5); BG DEOXYHEMOGLOBIN 3.6 % (0.0-5.0); BG HCO3 ACT 18.4 mmol/L (22.0-26.0); BG METHEMOGLOBIN 0.4 % (0.0-1.5); BG OXYGEN SATURATION 96.4 % (92.0-98.5); BG OXYHEMOGLOBIN 95.4 % (94.0-97.0); BG PCO2 29.9 mmHg (35.0-45.0); BG PH 7.408 (7.350-7.450); BG SAMPLE SITE RIGHT RADIAL; BG TIDAL VOLUME(mL) 550 mL; BG VENT MODE VENT - A/C; BG VENT RATE 16 set
[2017-11-12] MEDS: BLOOD SUGAR DIAGNOSTIC STRIP TEST SCH ×3 (08:00→17:47)
[2017-11-12] MEDS ORDERED: DEXTROSE 50% WATER 50ML SYRINGE IV PRN ×4 (08:00→13:15)
[2017-11-12] MEDS ORDERED: VANCOMYCIN 1500MG in DEXTROSE 5% WATER 250ML IV NR (08:00)
[2017-11-12] MEDS: INSULIN LISPRO 100 UNITS/ML SUBCUT SCH ×3 (08:39→17:51)
[2017-11-12] MEDS: LEVETIRACETAM 500 MG in SODIUM CHLORIDE 0.9% 100 ML IV SCH ×2 (08:59→21:10)
[2017-11-12] MEDS ORDERED: DIVALPROEX SODIUM 250MG DR TABLET PO SCH (09:00)
[2017-11-12] MEDS: CARVEDILOL 3.125 MG TABLET PO SCH ×2 (09:00→21:00)
[2017-11-12] MEDS ORDERED: CEFEPIME 2,000 MG in DEXT 5% WATER 100 ML IV SCH (09:00)
[2017-11-12] MEDS: METRONIDAZOLE 500 MG PREMIX 100 ML IV SCH ×2 (10:39→17:52)
[2017-11-12] MEDS: ASPIRIN 81MG TABLET PO SCH (10:39)
[2017-11-12 12:29] LABS: AMMONIA 17 uMol/L (<32)
[2017-11-12 12:34] LABS: T4 FREE 1.28 ng/dL (0.76-1.46)
[2017-11-12 12:45] LABS: FOLIC ACID (FOLATE) SERUM >20 ng/mL ng/mL (>5.38)
[2017-11-12] MEDS ORDERED: BLOOD SUGAR DIAGNOSTIC STRIP TEST SCH ×2 (12:50)
[2017-11-12 12:56] LABS: VITAMIN B12 SERUM 1200 pg/mL (211-911)
[2017-11-12] MEDS ORDERED: ACETAMINOPHEN 650MG/20.3ML UDC PO PRN (13:15)
[2017-11-12] MEDS: DIVALPROEX SODIUM 250MG DR TABLET PO SCH ×2 (13:46→17:52)
[2017-11-12] MEDS ORDERED: NOREPINEPHRINE BITARTRATE 1MG/ML 4ML IV ONE (15:28)
[2017-11-12] MEDS: ATORVASTATIN CALCIUM 10MG TABLET PO SCH (21:11)
[2017-11-13] VITALS (94 sets, daily range): BP systolic 70–125; BP diastolic 27–79
[2017-11-13] MEDS: METRONIDAZOLE 500 MG PREMIX 100 ML IV SCH ×2 (01:12→09:52)
[2017-11-13] MEDS: BLOOD SUGAR DIAGNOSTIC STRIP TEST SCH ×4 (01:15→18:25)
[2017-11-13] MEDS: INSULIN LISPRO 100 UNITS/ML SUBCUT SCH ×4 (01:20→18:36)
[2017-11-13] MEDS: NOREPINEPHRINE 8 MG in DEXT 5% WATER 242 ML IV PRN ×4 (02:00→23:25)
[2017-11-13] MEDS: SODIUM CHLORIDE 0.45% 1,000 ML IV SCH ×3 (02:00→18:00)
[2017-11-13 06:34] LABS: BASOPHILS % 0.4 % (0.0-2.0); EOSINOPHILS % 0.5 % (0.0-5.0); HEMATOCRIT. 36.4 % (36.0-48.0); LYMPHOCYTES % 7.5 % (20.0-50.0); MEAN CORPUSCULAR HEMOGLOBIN 32.5 pg (28.0-32.0); MEAN CORPUSCULAR VOLUME 98.1 fL (81.0-99.0); MEAN PLATELET VOLUME 13.2 fl (7.4-10.4); MONOCYTES % 5.9 % (2.0-8.0); NEUTROPHILS % 85.7 % (40.0-76.0); PLATELET 123 x1000/uL (130-400); RED BLOOD CELL COUNT 3.71 mill/uL (4.2-5.4); RED CELL DISTRIBUTION WIDTH 15.7 % (11.6-14.6)
[2017-11-13 06:51] LABS: PHOSPHORUS 2.1 mg/dL (2.5-4.9)
[2017-11-13] MEDS ORDERED: CEFEPIME 2,000 MG in DEXT 5% WATER 100 ML IV SCH (09:00)
[2017-11-13] MEDS: DIVALPROEX SODIUM 250MG DR TABLET PO SCH ×3 (09:50→17:57)
[2017-11-13] MEDS: LEVETIRACETAM 500 MG in SODIUM CHLORIDE 0.9% 100 ML IV SCH ×2 (09:50→21:59)
[2017-11-13] MEDS: ENOXAPARIN 30MG/0.3ML SYR SUBCUT SCH ×2 (09:50→21:59)
[2017-11-13] MEDS: ASPIRIN 81MG TABLET PO SCH (09:50)
[2017-11-13] MEDS: CLOPIDOGREL 75MG TABLET PO SCH (10:01)
[2017-11-13] MEDS: CARVEDILOL 3.125 MG TABLET PO SCH ×2 (10:01→21:00)
[2017-11-13 11:24] LABS: BG BASE EXCESS -5.4 mmol/L (-2.0-2.0); BG CARBOXYHEMOGLOBIN 0.3 % (0.5-1.5); BG DEOXYHEMOGLOBIN 1.4 % (0.0-5.0); BG FRACTION INSPIRED OXYGEN 100; BG HCO3 ACT 17.5 mmol/L (22.0-26.0); BG METHEMOGLOBIN 0.1 % (0.0-1.5); BG OXYGEN SATURATION 98.6 % (92.0-98.5); BG OXYHEMOGLOBIN 98.2 % (94.0-97.0); BG PCO2 27.1 mmHg (35.0-45.0); BG PH 7.428 (7.350-7.450); BG PO2 136.9 mmHg (75.0-100.0); BG SAMPLE SITE LEFT RADIAL; BG TIDAL VOLUME(mL) 550 mL; BG TOTAL HEMOGLOBIN 12.8 g/dL (12.0-18.0); BG VENT MODE VENT - A/C; BG VENT RATE 16 set
[2017-11-13 12:34] LABS: AMMONIA 20 uMol/L (<32)
[2017-11-13] MEDS: VANCOMYCIN 1250MG in DEXTROSE 5% WATER 250ML IV SCH (14:41)
[2017-11-13] MEDS ORDERED: POTASSIUM PHOS,M-BASIC-D-BASIC 15 MMOL in DEXT 5% WATER 245 ML IV NR (16:00)
[2017-11-13] MEDS: AMPICILLIN SOD/SULBACTAM NA 3 G in SODIUM CHLORIDE 0.9% 100 ML IV SCH (18:00)
[2017-11-13] MEDS ORDERED: POTASSIUM CHLORIDE INJ 40 MEQ in DEXT 5% WATER 250 ML IV NR (20:00)
[2017-11-13] MEDS: ATORVASTATIN CALCIUM 10MG TABLET PO SCH (21:59)
[2017-11-14] VITALS (99 sets, daily range): BP systolic 72–155; BP diastolic 21–77
[2017-11-14] MEDS: BLOOD SUGAR DIAGNOSTIC STRIP TEST SCH ×4 (01:41→18:44)
[2017-11-14] MEDS: AMPICILLIN SOD/SULBACTAM NA 3 G in SODIUM CHLORIDE 0.9% 100 ML IV SCH ×4 (01:46→18:37)
[2017-11-14] MEDS: INSULIN LISPRO 100 UNITS/ML SUBCUT SCH ×4 (01:47→18:42)
[2017-11-14] MEDS: SODIUM CHLORIDE 0.45% 1,000 ML IV SCH (02:50)
[2017-11-14 06:49] LABS: HEMATOCRIT. 35.1 % (36.0-48.0); HEMOGLOBIN. 11.9 g/dL (12.0-16.0); MEAN CORPUSCULAR VOLUME 97.5 fL (81.0-99.0); PLATELET 123 x1000/uL (130-400); RED CELL DISTRIBUTION WIDTH 15.4 % (11.6-14.6)
[2017-11-14 06:51] LABS: CHLORIDE 110 mEq/L (98-107)
[2017-11-14 06:59] LABS: PHOSPHORUS 1.3 mg/dL (2.5-4.9)
[2017-11-14] MEDS: SODIUM CHL 0.45% + KCL 20MEQ/L 1,000 ML IV SCH (08:50)
[2017-11-14] MEDS: LEVETIRACETAM 500 MG in SODIUM CHLORIDE 0.9% 100 ML IV SCH ×2 (08:50→20:39)
[2017-11-14] MEDS: VANCOMYCIN 1250MG in DEXTROSE 5% WATER 250ML IV SCH (09:02)
[2017-11-14] MEDS: ASPIRIN 81MG TABLET PO SCH (09:03)
[2017-11-14] MEDS: CLOPIDOGREL 75MG TABLET PO SCH (09:03)
[2017-11-14] MEDS: CARVEDILOL 3.125 MG TABLET PO SCH ×2 (09:03→20:40)
[2017-11-14] MEDS: DIVALPROEX SODIUM 250MG DR TABLET PO SCH ×3 (09:03→17:15)
[2017-11-14] MEDS: ENOXAPARIN 30MG/0.3ML SYR SUBCUT SCH ×2 (09:04→20:40)
[2017-11-14] MEDS ORDERED: POTASSIUM PHOS,M-BASIC-D-BASIC 30 MMOL in SODIUM CHLORIDE 0.9% 500 ML IV NR (09:30)
[2017-11-14 14:06] LABS: PLATELET ESTIMATE SLIGHTLY DECREASED
[2017-11-14] MEDS ORDERED: POTASSIUM CHLORIDE INJ 40 MEQ in DEXT 5% WATER 250 ML IV NR (16:00)
[2017-11-14] MEDS: NOREPINEPHRINE 8 MG in DEXT 5% WATER 242 ML IV PRN (17:16)
[2017-11-14] MEDS: ATORVASTATIN CALCIUM 10MG TABLET PO SCH (20:40)
[2017-11-15] VITALS (94 sets, daily range): BP systolic 89–219; BP diastolic 29–111
[2017-11-15] MEDS: BLOOD SUGAR DIAGNOSTIC STRIP TEST SCH ×5 (00:09→23:47)
[2017-11-15] MEDS: INSULIN LISPRO 100 UNITS/ML SUBCUT SCH ×5 (00:18→23:50)
[2017-11-15] MEDS: AMPICILLIN SOD/SULBACTAM NA 3 G in SODIUM CHLORIDE 0.9% 100 ML IV SCH ×5 (00:18→23:36)
[2017-11-15] MEDS: SODIUM CHL 0.45% + KCL 20MEQ/L 1,000 ML IV SCH (02:37)
[2017-11-15] MEDS: NOREPINEPHRINE 8 MG in DEXT 5% WATER 242 ML IV PRN ×2 (02:37→14:05)
[2017-11-15 07:11] LABS: HEMATOCRIT. 35.5 % (36.0-48.0); HEMOGLOBIN. 12.1 g/dL (12.0-16.0); MEAN CORPUSCULAR VOLUME 97.3 fL (81.0-99.0); MEAN PLATELET VOLUME 12.5 fl (7.4-10.4); PLATELET 144 x1000/uL (130-400); RED BLOOD CELL COUNT 3.65 mill/uL (4.2-5.4); RED CELL DISTRIBUTION WIDTH 15.3 % (11.6-14.6)
[2017-11-15 07:30] LABS: CHLORIDE 113 mEq/L (98-107)
[2017-11-15 07:42] LABS: PHOSPHORUS 1.7 mg/dL (2.5-4.9)
[2017-11-15] MEDS: CARVEDILOL 3.125 MG TABLET PO SCH ×2 (09:00→21:00)
[2017-11-15] MEDS: ASPIRIN 81MG TABLET PO SCH (09:20)
[2017-11-15] MEDS: CLOPIDOGREL 75MG TABLET PO SCH (09:20)
[2017-11-15] MEDS: DIVALPROEX SODIUM 250MG DR TABLET PO SCH (09:21)
[2017-11-15] MEDS: ENOXAPARIN 30MG/0.3ML SYR SUBCUT SCH ×2 (09:22→21:59)
[2017-11-15] MEDS: LEVETIRACETAM 500 MG in SODIUM CHLORIDE 0.9% 100 ML IV SCH ×2 (09:22→21:59)
[2017-11-15] MEDS: VANCOMYCIN 1250MG in DEXTROSE 5% WATER 250ML IV SCH (09:22)
[2017-11-15] MEDS ORDERED: POTASSIUM PHOS,M-BASIC-D-BASIC 30 MMOL in DEXT 5% WATER 500 ML IV NR (09:30)
[2017-11-15 09:43] LABS: PLATELET ESTIMATE NORMAL
[2017-11-15] MEDS: POTASSIUM CHLORIDE INJ 40 MEQ in DEXTROSE 5% WATER 1,000 ML IV SCH ×2 (09:56→23:36)
[2017-11-15] MEDS: DIVALPROEX SODIUM 500MG DR TABLET PO SCH ×2 (14:37→17:55)
[2017-11-15] MEDS ORDERED: NOREPINEPHRINE BITARTRATE 1MG/ML 4ML IV ONE (21:28)
[2017-11-15] MEDS: ATORVASTATIN CALCIUM 10MG TABLET PO SCH (21:58)
[2017-11-15] MEDS: VANCOMYCIN 1 G PREMIX 200 ML IV SCH (23:36)
[2017-11-16] VITALS (94 sets, daily range): BP systolic 82–129; BP diastolic 33–88
[2017-11-16] MEDS: NOREPINEPHRINE 8 MG in DEXT 5% WATER 242 ML IV PRN ×2 (01:30→13:39)
[2017-11-16] MEDS: AMPICILLIN SOD/SULBACTAM NA 3 G in SODIUM CHLORIDE 0.9% 100 ML IV SCH ×3 (05:24→18:36)
[2017-11-16] MEDS: BLOOD SUGAR DIAGNOSTIC STRIP TEST SCH ×3 (05:31→18:35)
[2017-11-16] MEDS: INSULIN LISPRO 100 UNITS/ML SUBCUT SCH ×3 (05:33→18:39)
[2017-11-16 06:12] LABS: HEMATOCRIT. 36.2 % (36.0-48.0); MEAN CORPUSCULAR HEMOGLOBIN 32.3 pg (28.0-32.0); MEAN CORPUSCULAR VOLUME 97.4 fL (81.0-99.0); MEAN PLATELET VOLUME 11.8 fl (7.4-10.4); PLATELET 185 x1000/uL (130-400); RED BLOOD CELL COUNT 3.72 mill/uL (4.2-5.4); RED CELL DISTRIBUTION WIDTH 15.5 % (11.6-14.6)
[2017-11-16 06:37] LABS: CHLORIDE 113 mEq/L (98-107)
[2017-11-16 06:43] LABS: PHOSPHORUS 2.2 mg/dL (2.5-4.9)
[2017-11-16 07:16] LABS: PLATELET ESTIMATE NORMAL
[2017-11-16] MEDS: CLOPIDOGREL 75MG TABLET PO SCH (09:00)
[2017-11-16] MEDS ORDERED: POTASSIUM PHOS,M-BASIC-D-BASIC 30 MMOL in DEXT 5% WATER 500 ML IV SCH (09:00)
[2017-11-16] MEDS: LEVETIRACETAM 500 MG in SODIUM CHLORIDE 0.9% 100 ML IV SCH ×2 (09:43→21:16)
[2017-11-16] MEDS: DIVALPROEX SODIUM 500MG DR TABLET PO SCH ×3 (09:44→18:34)
[2017-11-16] MEDS: ASPIRIN 81MG TABLET PO SCH (09:44)
[2017-11-16] MEDS: CARVEDILOL 3.125 MG TABLET PO SCH ×2 (09:44→21:00)
[2017-11-16] MEDS: ENOXAPARIN 30MG/0.3ML SYR SUBCUT SCH ×2 (09:44→21:17)
[2017-11-16] MEDS: IPRATROPIUM/ALBUTEROL 0.5-3(2.5)MG/3ML NEB HHN PRN ×3 (12:31→19:40)
[2017-11-16] MEDS: POTASSIUM CHLORIDE INJ 40 MEQ in DEXTROSE 5% WATER 1,000 ML IV SCH (13:37)
[2017-11-16] MEDS: FUROSEMIDE 40MG/4ML VIAL IVP SCH (13:45)
[2017-11-16] MEDS: VANCOMYCIN 1 G PREMIX 200 ML IV SCH (18:34)
[2017-11-16] MEDS: ATORVASTATIN CALCIUM 10MG TABLET PO SCH (21:16)
[2017-11-17] VITALS (94 sets, daily range): BP systolic 58–127; BP diastolic 38–72
[2017-11-17] MEDS: IPRATROPIUM/ALBUTEROL 0.5-3(2.5)MG/3ML NEB HHN PRN ×4 (00:16→17:06)
[2017-11-17] MEDS: AMPICILLIN SOD/SULBACTAM NA 3 G in SODIUM CHLORIDE 0.9% 100 ML IV SCH ×4 (00:41→17:58)
[2017-11-17] MEDS: POTASSIUM CHLORIDE INJ 40 MEQ in DEXTROSE 5% WATER 1,000 ML IV SCH ×2 (01:48→20:09)
[2017-11-17 05:22] LABS: EOSINOPHILS % 1.5 % (0.0-5.0); LYMPHOCYTES % 7.7 % (20.0-50.0); MEAN CORPUSCULAR HEMOGLOBIN 32.4 pg (28.0-32.0); MEAN CORPUSCULAR VOLUME 97.4 fL (81.0-99.0); MEAN PLATELET VOLUME 11.4 fl (7.4-10.4); MONOCYTES % 13.8 % (2.0-8.0); PLATELET 225 x1000/uL (130-400); RED CELL DISTRIBUTION WIDTH 15.5 % (11.6-14.6)
[2017-11-17 05:29] LABS: CHLORIDE 110 mEq/L (98-107)
[2017-11-17] MEDS: BLOOD SUGAR DIAGNOSTIC STRIP TEST SCH ×4 (05:46→17:58)
[2017-11-17] MEDS: INSULIN LISPRO 100 UNITS/ML SUBCUT SCH ×4 (05:46→17:58)
[2017-11-17] MEDS: NOREPINEPHRINE 8 MG in DEXT 5% WATER 242 ML IV PRN ×2 (07:30→22:18)
[2017-11-17] MEDS: CARVEDILOL 3.125 MG TABLET PO SCH ×2 (08:40→22:13)
[2017-11-17] MEDS: LEVETIRACETAM 500 MG in SODIUM CHLORIDE 0.9% 100 ML IV SCH ×2 (09:30→22:13)
[2017-11-17] MEDS: FUROSEMIDE 40MG/4ML VIAL IVP SCH (09:31)
[2017-11-17] MEDS: DIVALPROEX SODIUM 500MG DR TABLET PO SCH ×3 (09:31→17:58)
[2017-11-17] MEDS: ENOXAPARIN 30MG/0.3ML SYR SUBCUT SCH ×2 (09:31→22:14)
[2017-11-17] MEDS: VANCOMYCIN 1 G PREMIX 200 ML IV SCH (12:06)
[2017-11-17 13:06] LABS: A/G RATIO 0.5 (0.7-1.7); ALBUMIN 1.8 g/dL (2.9-4.4); ALPHA-1-GLOBULIN 0.4 g/dL (0.0-0.4); ALPHA-2-GLOBULIN 0.9 g/dL (0.4-1.0); BETA GLOBULIN 0.9 g/dL (0.7-1.3); GAMMA GLOBULINS 1.1 g/dL (0.4-1.8); GLOBULIN TOTAL 3.3 g/dL (2.2-3.9); M-SPIKE Not Observed g/dL (Not Observed); TOTAL PROTEIN SERUM 5.1 g/dL (6.0-8.5)
[2017-11-17] MEDS: ATORVASTATIN CALCIUM 10MG TABLET PO SCH (22:13)
[2017-11-18] VITALS (81 sets, daily range): BP systolic 76–137; BP diastolic 34–81
[2017-11-18] MEDS: AMPICILLIN SOD/SULBACTAM NA 3 G in SODIUM CHLORIDE 0.9% 100 ML IV SCH ×5 (00:44→23:16)
[2017-11-18] MEDS: BLOOD SUGAR DIAGNOSTIC STRIP TEST SCH ×4 (00:48→18:12)
[2017-11-18 04:39] LABS: HEMATOCRIT. 34.2 % (36.0-48.0); HEMOGLOBIN. 11.5 g/dL (12.0-16.0); MEAN CORPUSCULAR HEMOGLOBIN 32.8 pg (28.0-32.0); MEAN CORPUSCULAR VOLUME 97.6 fL (81.0-99.0); MEAN PLATELET VOLUME 10.9 fl (7.4-10.4); PLATELET 261 x1000/uL (130-400); RED CELL DISTRIBUTION WIDTH 15.9 % (11.6-14.6)
[2017-11-18 04:41] LABS: CHLORIDE 109 mEq/L (98-107)
[2017-11-18 04:47] LABS: PHOSPHORUS 2.9 mg/dL (2.5-4.9)
[2017-11-18 04:50] LABS: VANCOMYCIN TROUGH 18.1 ug/mL (5.0-10.0)
[2017-11-18] MEDS: VANCOMYCIN 1 G PREMIX 200 ML IV SCH (05:35)
[2017-11-18] MEDS: INSULIN LISPRO 100 UNITS/ML SUBCUT SCH ×4 (06:00→18:00)
[2017-11-18] MEDS: CARVEDILOL 3.125 MG TABLET PO SCH ×2 (09:00→21:00)
[2017-11-18] MEDS: LEVETIRACETAM 500 MG in SODIUM CHLORIDE 0.9% 100 ML IV SCH ×2 (09:35→21:50)
[2017-11-18] MEDS: FUROSEMIDE 40MG/4ML VIAL IVP SCH (09:35)
[2017-11-18] MEDS: DIVALPROEX SODIUM 500MG DR TABLET PO SCH ×3 (09:35→17:12)
[2017-11-18] MEDS: POTASSIUM CHLORIDE INJ 40 MEQ in DEXTROSE 5% WATER 1,000 ML IV SCH (09:36)
[2017-11-18] MEDS: ENOXAPARIN 30MG/0.3ML SYR SUBCUT SCH ×2 (09:43→21:50)
[2017-11-18 10:45] LABS: PLATELET ESTIMATE NORMAL
[2017-11-18] MEDS ORDERED: MAGNESIUM SULFATE 2 GM in DEXTROSE 5% WATER 50 ML IV NR (12:00)
[2017-11-18 13:40] LABS: BG BASE EXCESS -0.5 mmol/L (-2.0-2.0); BG CARBOXYHEMOGLOBIN 0.3 % (0.5-1.5); BG DEOXYHEMOGLOBIN 3.4 % (0.0-5.0); BG FRACTION INSPIRED OXYGEN 60; BG HCO3 ACT 22.7 mmol/L (22.0-26.0); BG METHEMOGLOBIN 0.2 % (0.0-1.5); BG OXYGEN SATURATION 96.6 % (92.0-98.5); BG OXYHEMOGLOBIN 96.1 % (94.0-97.0); BG PCO2 32.6 mmHg (35.0-45.0); BG PO2 88.4 mmHg (75.0-100.0); BG SAMPLE SITE RIGHT RADIAL; BG TIDAL VOLUME(mL) 550 mL; BG TOTAL HEMOGLOBIN 11.9 g/dL (12.0-18.0); BG VENT MODE VENT - A/C; BG VENT RATE 16 set
[2017-11-18] MEDS: METOCLOPRAMIDE HCL 10MG/2ML VIAL IV SCH (17:36)
[2017-11-18] MEDS: NOREPINEPHRINE 8 MG in DEXT 5% WATER 242 ML IV PRN (21:50)
[2017-11-18] MEDS: ATORVASTATIN CALCIUM 10MG TABLET PO SCH (21:50)
[2017-11-19] VITALS (85 sets, daily range): BP systolic 85–135; BP diastolic 41–67
[2017-11-19] MEDS: VANCOMYCIN 1 G PREMIX 200 ML IV SCH ×2 (00:22→18:20)
[2017-11-19] MEDS: BLOOD SUGAR DIAGNOSTIC STRIP TEST SCH ×5 (00:22→23:47)
[2017-11-19] MEDS: METOCLOPRAMIDE HCL 10MG/2ML VIAL IV SCH ×5 (00:22→23:59)
[2017-11-19] MEDS: POTASSIUM CHLORIDE INJ 40 MEQ in DEXTROSE 5% WATER 1,000 ML IV SCH ×2 (01:48→22:56)
[2017-11-19] MEDS: AMPICILLIN SOD/SULBACTAM NA 3 G in SODIUM CHLORIDE 0.9% 100 ML IV SCH ×4 (05:22→23:59)
[2017-11-19] MEDS: INSULIN LISPRO 100 UNITS/ML SUBCUT SCH ×5 (05:22→23:47)
[2017-11-19] MEDS: CARVEDILOL 3.125 MG TABLET PO SCH ×2 (08:27→21:00)
[2017-11-19] MEDS: IPRATROPIUM/ALBUTEROL 0.5-3(2.5)MG/3ML NEB HHN PRN (08:34)
[2017-11-19] MEDS: LACTOBACILLUS GG CAPSULE PO SCH (08:35)
[2017-11-19] MEDS: FUROSEMIDE 40MG/4ML VIAL IVP SCH (08:35)
[2017-11-19] MEDS: DIVALPROEX SODIUM 500MG DR TABLET PO SCH ×3 (08:35→17:30)
[2017-11-19] MEDS: ENOXAPARIN 30MG/0.3ML SYR SUBCUT SCH ×2 (08:36→21:03)
[2017-11-19] MEDS: LEVETIRACETAM 500 MG in SODIUM CHLORIDE 0.9% 100 ML IV SCH ×2 (09:34→21:07)
[2017-11-19] MEDS: ATORVASTATIN CALCIUM 10MG TABLET PO SCH (21:03)
[2017-11-20] VITALS (58 sets, daily range): BP systolic 72–116; BP diastolic 31–67
[2017-11-20] MEDS: METOCLOPRAMIDE HCL 10MG/2ML VIAL IV SCH ×3 (05:58→18:00)
[2017-11-20] MEDS: AMPICILLIN SOD/SULBACTAM NA 3 G in SODIUM CHLORIDE 0.9% 100 ML IV SCH ×3 (05:58→18:09)
[2017-11-20] MEDS: BLOOD SUGAR DIAGNOSTIC STRIP TEST SCH ×3 (05:58→17:37)
[2017-11-20] MEDS: INSULIN LISPRO 100 UNITS/ML SUBCUT SCH ×3 (05:59→18:00)
[2017-11-20 07:03] LABS: INR 1.1; PARTIAL THROMBOPLASTIN TIME 34.1 sec (23.4-31.0); PROTHROMBIN TIME 10.6 sec (9.1-11.1)
[2017-11-20 07:09] LABS: HEMATOCRIT. 35.4 % (36.0-48.0); HEMOGLOBIN. 11.7 g/dL (12.0-16.0); MEAN CORPUSCULAR HEMOGLOBIN 32.8 pg (28.0-32.0); MEAN CORPUSCULAR VOLUME 99.6 fL (81.0-99.0); MEAN PLATELET VOLUME 10.6 fl (7.4-10.4); PLATELET 397 x1000/uL (130-400); RED BLOOD CELL COUNT 3.56 mill/uL (4.2-5.4); RED CELL DISTRIBUTION WIDTH 15.9 % (11.6-14.6)
[2017-11-20 07:40] LABS: CHLORIDE 104 mEq/L (98-107)
[2017-11-20 07:45] LABS: PHOSPHORUS 2.9 mg/dL (2.5-4.9)
[2017-11-20 09:00] LABS: PLATELET ESTIMATE NORMAL
[2017-11-20] MEDS: ENOXAPARIN 30MG/0.3ML SYR SUBCUT SCH ×2 (09:00→21:40)
[2017-11-20] MEDS: FUROSEMIDE 40MG/4ML VIAL IVP SCH (09:27)
[2017-11-20] MEDS: LEVETIRACETAM 500 MG in SODIUM CHLORIDE 0.9% 100 ML IV SCH ×2 (09:28→21:42)
[2017-11-20] MEDS: LACTOBACILLUS GG CAPSULE PO SCH (09:28)
[2017-11-20] MEDS: CARVEDILOL 3.125 MG TABLET PO SCH ×2 (09:28→21:00)
[2017-11-20] MEDS: DIVALPROEX SODIUM 500MG DR TABLET PO SCH ×3 (09:28→18:09)
[2017-11-20] MEDS: ATORVASTATIN CALCIUM 10MG TABLET PO SCH (21:40)
[2017-11-21] VITALS (32 sets, daily range): BP systolic 84–117; BP diastolic 35–66
[2017-11-21] MEDS: BLOOD SUGAR DIAGNOSTIC STRIP TEST SCH ×5 (00:34→23:24)
[2017-11-21] MEDS: AMPICILLIN SOD/SULBACTAM NA 3 G in SODIUM CHLORIDE 0.9% 100 ML IV SCH ×5 (00:46→23:16)
[2017-11-21] MEDS: POTASSIUM CHLORIDE INJ 40 MEQ in DEXTROSE 5% WATER 1,000 ML IV SCH ×2 (05:02→17:56)
[2017-11-21] MEDS: INSULIN LISPRO 100 UNITS/ML SUBCUT SCH ×5 (07:30→23:24)
[2017-11-21] MEDS: ENOXAPARIN 30MG/0.3ML SYR SUBCUT SCH (09:00)
[2017-11-21] MEDS: DIVALPROEX SODIUM 500MG DR TABLET PO SCH ×3 (09:49→17:59)
[2017-11-21] MEDS: FUROSEMIDE 40MG/4ML VIAL IVP SCH (09:49)
[2017-11-21] MEDS: LACTOBACILLUS GG CAPSULE PO SCH (09:49)
[2017-11-21] MEDS: CARVEDILOL 3.125 MG TABLET PO SCH ×2 (09:49→21:00)
[2017-11-21] MEDS: LEVETIRACETAM 500 MG in SODIUM CHLORIDE 0.9% 100 ML IV SCH ×2 (09:50→21:09)
[2017-11-21 11:02] LABS: HEMATOCRIT. 34.6 % (36.0-48.0); HEMOGLOBIN. 11.4 g/dL (12.0-16.0); MEAN CORPUSCULAR HEMOGLOBIN 32.2 pg (28.0-32.0); MEAN CORPUSCULAR VOLUME 97.6 fL (81.0-99.0); MEAN PLATELET VOLUME 10.2 fl (7.4-10.4); PLATELET 406 x1000/uL (130-400); RED BLOOD CELL COUNT 3.54 mill/uL (4.2-5.4); RED CELL DISTRIBUTION WIDTH 15.9 % (11.6-14.6)
[2017-11-21 11:08] LABS: CHLORIDE 104 mEq/L (98-107)
[2017-11-21 11:13] LABS: PHOSPHORUS 3.5 mg/dL (2.5-4.9)
[2017-11-21 11:41] LABS: PLATELET ESTIMATE SLIGHTLY INCREASED
[2017-11-21] MEDS ORDERED: SODIUM BICARBONATE 4% (2.4MEQ) 5ML VIAL IV ONE (12:21)
[2017-11-21] MEDS ORDERED: LIDOCAINE HCL 1% 10 MG/ML 10ML VIAL ONE (12:21)
[2017-11-21] MEDS: DEXT 5%/0.45% NACL 1000ML 1,000 ML IV SCH (17:15)
[2017-11-21] MEDS: IPRATROPIUM/ALBUTEROL 0.5-3(2.5)MG/3ML NEB HHN PRN (20:21)
[2017-11-21] MEDS: ATORVASTATIN CALCIUM 10MG TABLET PO SCH (21:08)
[2017-11-22] VITALS (45 sets, daily range): BP systolic 88–125; BP diastolic 36–72
[2017-11-22] MEDS: IPRATROPIUM/ALBUTEROL 0.5-3(2.5)MG/3ML NEB HHN PRN ×4 (00:45→15:21)
[2017-11-22] MEDS: AMPICILLIN SOD/SULBACTAM NA 3 G in SODIUM CHLORIDE 0.9% 100 ML IV SCH ×3 (05:24→17:37)
[2017-11-22] MEDS: BLOOD SUGAR DIAGNOSTIC STRIP TEST SCH ×3 (05:34→18:00)
[2017-11-22] MEDS: INSULIN LISPRO 100 UNITS/ML SUBCUT SCH ×3 (05:34→18:00)
[2017-11-22 06:05] LABS: HEMATOCRIT. 33.8 % (36.0-48.0); HEMOGLOBIN. 11.1 g/dL (12.0-16.0); MEAN CORPUSCULAR HEMOGLOBIN 32.8 pg (28.0-32.0); MEAN CORPUSCULAR VOLUME 99.9 fL (81.0-99.0); MEAN PLATELET VOLUME 10.2 fl (7.4-10.4); PLATELET 399 x1000/uL (130-400); RED BLOOD CELL COUNT 3.39 mill/uL (4.2-5.4); RED CELL DISTRIBUTION WIDTH 15.7 % (11.6-14.6)
[2017-11-22 06:10] LABS: INR 1.1; PARTIAL THROMBOPLASTIN TIME 30.2 sec (23.4-31.0); PROTHROMBIN TIME 11.1 sec (9.1-11.1)
[2017-11-22 06:19] LABS: CHLORIDE 103 mEq/L (98-107)
[2017-11-22] MEDS: DEXT 5%/0.45% NACL 1000ML 1,000 ML IV SCH ×2 (06:35→09:48)
[2017-11-22] MEDS: LACTOBACILLUS GG CAPSULE PO SCH (09:00)
[2017-11-22] MEDS: CARVEDILOL 3.125 MG TABLET PO SCH ×2 (09:00→21:13)
[2017-11-22] MEDS: DIVALPROEX SODIUM 500MG DR TABLET PO SCH ×3 (09:00→17:37)
[2017-11-22] MEDS: FUROSEMIDE 40MG/4ML VIAL IVP SCH (09:48)
[2017-11-22] MEDS: LEVETIRACETAM 500 MG in SODIUM CHLORIDE 0.9% 100 ML IV SCH ×2 (09:49→21:13)
[2017-11-22] MEDS ORDERED: ROCURONIUM BROMIDE 10MG/ML VIAL 5ML IV ONE ×2 (12:48→13:19)
[2017-11-22] MEDS ORDERED: FENTANYL CITRATE/PF 50MCG/ML 2ML VIAL ONE (12:48)
[2017-11-22] MEDS ORDERED: MIDAZOLAM HCL 2 MG/2 ML VIAL ONE (12:48)
[2017-11-22] MEDS ORDERED: PROPOFOL 200MG/20ML VIAL IV ONE (12:48)
[2017-11-22 14:45] LABS: PLATELET ESTIMATE NORMAL
[2017-11-22] MEDS: ENOXAPARIN 30MG/0.3ML SYR SUBCUT SCH (21:00)
[2017-11-22] MEDS: ATORVASTATIN CALCIUM 10MG TABLET PO SCH (21:13)
[2017-11-23] VITALS (29 sets, daily range): BP systolic 85–121; BP diastolic 40–59
[2017-11-23] MEDS: IPRATROPIUM/ALBUTEROL 0.5-3(2.5)MG/3ML NEB HHN PRN ×3 (00:28→15:37)
[2017-11-23] MEDS: BLOOD SUGAR DIAGNOSTIC STRIP TEST SCH ×5 (05:44→23:50)
[2017-11-23] MEDS: INSULIN LISPRO 100 UNITS/ML SUBCUT SCH ×5 (05:52→23:49)
[2017-11-23] MEDS: DEXT 5%/0.45% NACL 1000ML 1,000 ML IV SCH (05:53)
[2017-11-23 06:31] LABS: HEMATOCRIT. 33.9 % (36.0-48.0); HEMOGLOBIN. 11.2 g/dL (12.0-16.0); MEAN CORPUSCULAR HEMOGLOBIN 32.7 pg (28.0-32.0); MEAN CORPUSCULAR VOLUME 99.1 fL (81.0-99.0); MEAN PLATELET VOLUME 10.2 fl (7.4-10.4); PLATELET 448 x1000/uL (130-400); RED BLOOD CELL COUNT 3.42 mill/uL (4.2-5.4); RED CELL DISTRIBUTION WIDTH 16.1 % (11.6-14.6)
[2017-11-23 06:43] LABS: CHLORIDE 104 mEq/L (98-107)
[2017-11-23 06:49] LABS: PHOSPHORUS 4.2 mg/dL (2.5-4.9)
[2017-11-23 08:06] LABS: PLATELET ESTIMATE INCREASED
[2017-11-23] MEDS: ENOXAPARIN 30MG/0.3ML SYR SUBCUT SCH ×2 (08:40→20:12)
[2017-11-23] MEDS: CARVEDILOL 3.125 MG TABLET PO SCH ×2 (09:00→20:12)
[2017-11-23] MEDS: LEVETIRACETAM 500 MG in SODIUM CHLORIDE 0.9% 100 ML IV SCH ×2 (09:22→20:11)
[2017-11-23] MEDS: DIVALPROEX SODIUM 500MG DR TABLET PO SCH ×3 (09:22→17:12)
[2017-11-23] MEDS: FUROSEMIDE 40MG/4ML VIAL IVP SCH (09:22)
[2017-11-23] MEDS: LACTOBACILLUS GG CAPSULE PO SCH (09:23)
[2017-11-23] MEDS: MIDODRINE HCL 5MG TABLET GT SCH ×3 (09:23→17:12)
[2017-11-23] MEDS ORDERED: SODIUM CHLORIDE 0.9% 1,000 ML IV SCH (20:00)
[2017-11-23] MEDS: ATORVASTATIN CALCIUM 10MG TABLET PO SCH (20:11)
[2017-11-23] MEDS: NOREPINEPHRINE 8 MG in DEXT 5% WATER 242 ML IV PRN (23:31)
[2017-11-24] VITALS (46 sets, daily range): BP systolic 85–128; BP diastolic 28–80
[2017-11-24] MEDS: IPRATROPIUM/ALBUTEROL 0.5-3(2.5)MG/3ML NEB HHN PRN ×5 (04:36→19:46)
[2017-11-24 05:31] LABS: HEMATOCRIT. 30.8 % (36.0-48.0); HEMOGLOBIN. 10.3 g/dL (12.0-16.0); MEAN CORPUSCULAR HEMOGLOBIN 32.7 pg (28.0-32.0); MEAN CORPUSCULAR VOLUME 98.1 fL (81.0-99.0); MEAN PLATELET VOLUME 10.3 fl (7.4-10.4); PLATELET 404 x1000/uL (130-400); RED BLOOD CELL COUNT 3.14 mill/uL (4.2-5.4); RED CELL DISTRIBUTION WIDTH 15.8 % (11.6-14.6)
[2017-11-24 05:41] LABS: CHLORIDE 101 mEq/L (98-107)
[2017-11-24 05:45] LABS: PHOSPHORUS 3.5 mg/dL (2.5-4.9)
[2017-11-24 07:48] LABS: PLATELET ESTIMATE NORMAL
[2017-11-24] MEDS: FUROSEMIDE 40MG/4ML VIAL IVP SCH (10:16)
[2017-11-24] MEDS: LEVETIRACETAM 500 MG in SODIUM CHLORIDE 0.9% 100 ML IV SCH ×2 (10:17→23:52)
[2017-11-24] MEDS: CARVEDILOL 3.125 MG TABLET PO SCH ×2 (10:17→23:52)
[2017-11-24] MEDS: MIDODRINE HCL 5MG TABLET GT SCH ×3 (10:18→17:46)
[2017-11-24] MEDS: LACTOBACILLUS GG CAPSULE PO SCH (10:19)
[2017-11-24] MEDS: DIVALPROEX SODIUM 500MG DR TABLET PO SCH ×3 (10:23→17:46)
[2017-11-24] MEDS: ENOXAPARIN 30MG/0.3ML SYR SUBCUT SCH ×2 (10:26→23:52)
[2017-11-24] MEDS: BLOOD SUGAR DIAGNOSTIC STRIP TEST SCH ×2 (12:06→17:47)
[2017-11-24] MEDS: INSULIN LISPRO 100 UNITS/ML SUBCUT SCH ×3 (12:11→17:50)
[2017-11-24] MEDS: ATORVASTATIN CALCIUM 10MG TABLET PO SCH (23:52)
[2017-11-25] VITALS (13 sets, daily range): BP systolic 89–113; BP diastolic 40–90
[2017-11-25] MEDS: INSULIN LISPRO 100 UNITS/ML SUBCUT SCH ×4 (06:00→17:38)
[2017-11-25] MEDS: BLOOD SUGAR DIAGNOSTIC STRIP TEST SCH ×4 (06:34→17:38)
[2017-11-25 06:39] LABS: HEMOGLOBIN. 10.1 g/dL (12.0-16.0); MEAN CORPUSCULAR HEMOGLOBIN 33.3 pg (28.0-32.0); MEAN CORPUSCULAR VOLUME 98.5 fL (81.0-99.0); MEAN PLATELET VOLUME 10.2 fl (7.4-10.4); PLATELET 371 x1000/uL (130-400); RED BLOOD CELL COUNT 3.04 mill/uL (4.2-5.4); RED CELL DISTRIBUTION WIDTH 15.8 % (11.6-14.6)
[2017-11-25 06:53] LABS: CHLORIDE 103 mEq/L (98-107)
[2017-11-25 06:59] LABS: PHOSPHORUS 3.4 mg/dL (2.5-4.9)
[2017-11-25] MEDS: IPRATROPIUM/ALBUTEROL 0.5-3(2.5)MG/3ML NEB HHN PRN (08:25)
[2017-11-25] MEDS: CARVEDILOL 3.125 MG TABLET PO SCH ×2 (09:00→21:00)
[2017-11-25] MEDS: DIVALPROEX SODIUM 500MG DR TABLET PO SCH ×3 (09:00→17:16)
[2017-11-25] MEDS: LEVETIRACETAM 500 MG in SODIUM CHLORIDE 0.9% 100 ML IV SCH ×2 (09:08→21:05)
[2017-11-25] MEDS: ENOXAPARIN 30MG/0.3ML SYR SUBCUT SCH ×2 (09:08→21:04)
[2017-11-25] MEDS: FUROSEMIDE 40MG/4ML VIAL IVP SCH (09:08)
[2017-11-25] MEDS: MIDODRINE HCL 5MG TABLET GT SCH ×3 (09:08→17:16)
[2017-11-25] MEDS: LACTOBACILLUS GG CAPSULE PO SCH (09:08)
[2017-11-25 09:20] LABS: PLATELET ESTIMATE NORMAL
[2017-11-25] MEDS ORDERED: POTASSIUM CHLORIDE 8 MEQ TABLET.SA PO SCH (12:15)
[2017-11-25] MEDS ORDERED: POTASSIUM CHLORIDE 20MEQ/PACKET GT NR (12:30)
[2017-11-25] MEDS ORDERED: MIDODRINE HCL 5MG TABLET GT SCH (13:00)
[2017-11-25] MEDS: ATORVASTATIN CALCIUM 10MG TABLET PO SCH (21:05)
[2017-11-26] VITALS (12 sets, daily range): BP systolic 96–133; BP diastolic 40–81
[2017-11-26] MEDS: BLOOD SUGAR DIAGNOSTIC STRIP TEST SCH ×4 (00:40→17:05)
[2017-11-26] MEDS: INSULIN LISPRO 100 UNITS/ML SUBCUT SCH ×4 (06:00→17:06)
[2017-11-26 06:11] LABS: MEAN CORPUSCULAR HEMOGLOBIN 32.8 pg (28.0-32.0); MEAN CORPUSCULAR VOLUME 98.9 fL (81.0-99.0); MEAN PLATELET VOLUME 10.3 fl (7.4-10.4); PLATELET 376 x1000/uL (130-400); RED BLOOD CELL COUNT 3.04 mill/uL (4.2-5.4)
[2017-11-26 06:49] LABS: CHLORIDE 103 mEq/L (98-107)
[2017-11-26 07:06] LABS: PHOSPHORUS 3.3 mg/dL (2.5-4.9)
[2017-11-26] MEDS: IPRATROPIUM/ALBUTEROL 0.5-3(2.5)MG/3ML NEB HHN PRN (08:04)
[2017-11-26 09:52] LABS: PLATELET ESTIMATE NORMAL
[2017-11-26] MEDS: LACTOBACILLUS GG CAPSULE PO SCH (11:40)
[2017-11-26] MEDS: ENOXAPARIN 30MG/0.3ML SYR SUBCUT SCH ×2 (11:40→21:56)
[2017-11-26] MEDS: FUROSEMIDE 40MG/4ML VIAL IVP SCH (11:40)
[2017-11-26] MEDS: LEVETIRACETAM 500 MG in SODIUM CHLORIDE 0.9% 100 ML IV SCH ×2 (11:47→21:57)
[2017-11-26] MEDS: DIVALPROEX SODIUM 500MG DR TABLET PO SCH ×3 (11:48→17:17)
[2017-11-26] MEDS: MIDODRINE HCL 5MG TABLET GT SCH ×3 (11:48→17:17)
[2017-11-26] MEDS: CARVEDILOL 3.125 MG TABLET PO SCH ×2 (11:49→21:00)
[2017-11-26] MEDS ORDERED: ONDANSETRON HCL 4MG/2ML INJ IV PRN (12:15)
[2017-11-26] MEDS: ATORVASTATIN CALCIUM 10MG TABLET PO SCH (21:56)
[2017-11-27] VITALS (12 sets, daily range): BP systolic 95–139; BP diastolic 42–77
[2017-11-27] MEDS: IPRATROPIUM/ALBUTEROL 0.5-3(2.5)MG/3ML NEB HHN PRN (00:01)
[2017-11-27] MEDS: BLOOD SUGAR DIAGNOSTIC STRIP TEST SCH ×4 (00:44→17:30)
[2017-11-27] MEDS: INSULIN LISPRO 100 UNITS/ML SUBCUT SCH ×4 (06:00→17:30)
[2017-11-27 08:29] LABS: BASOPHILS % 0.3 % (0.0-2.0); EOSINOPHILS % 0.2 % (0.0-5.0); HEMATOCRIT. 31.5 % (36.0-48.0); HEMOGLOBIN. 10.3 g/dL (12.0-16.0); LYMPHOCYTES % 9.4 % (20.0-50.0); MEAN CORPUSCULAR HEMOGLOBIN 32.5 pg (28.0-32.0); MEAN CORPUSCULAR VOLUME 99.5 fL (81.0-99.0); MEAN PLATELET VOLUME 10.3 fl (7.4-10.4); MONOCYTES % 10.2 % (2.0-8.0); NEUTROPHILS % 79.9 % (40.0-76.0); PLATELET 416 x1000/uL (130-400); RED BLOOD CELL COUNT 3.17 mill/uL (4.2-5.4); RED CELL DISTRIBUTION WIDTH 15.9 % (11.6-14.6)
[2017-11-27] MEDS: MIDODRINE HCL 5MG TABLET GT SCH ×3 (08:30→16:40)
[2017-11-27] MEDS: DIVALPROEX SODIUM 500MG DR TABLET PO SCH ×3 (08:30→16:39)
[2017-11-27] MEDS: LEVETIRACETAM 500 MG in SODIUM CHLORIDE 0.9% 100 ML IV SCH ×2 (08:30→21:29)
[2017-11-27] MEDS: LACTOBACILLUS GG CAPSULE PO SCH (08:30)
[2017-11-27] MEDS: FUROSEMIDE 40MG TABLET GT SCH (08:30)
[2017-11-27] MEDS: ENOXAPARIN 30MG/0.3ML SYR SUBCUT SCH ×2 (08:31→21:29)
[2017-11-27] MEDS: CARVEDILOL 3.125 MG TABLET PO SCH ×2 (08:31→21:00)
[2017-11-27 08:45] LABS: CHLORIDE 103 mEq/L (98-107)
[2017-11-27 09:02] LABS: PHOSPHORUS 3.6 mg/dL (2.5-4.9)
[2017-11-27] MEDS: METOCLOPRAMIDE HCL 10MG/2ML VIAL IV SCH ×2 (13:30→21:29)
[2017-11-27] MEDS: ATORVASTATIN CALCIUM 10MG TABLET PO SCH (21:29)
[2017-11-28] VITALS (12 sets, daily range): BP systolic 94–130; BP diastolic 40–68
[2017-11-28] MEDS: IPRATROPIUM/ALBUTEROL 0.5-3(2.5)MG/3ML NEB HHN PRN (01:34)
[2017-11-28] MEDS: INSULIN LISPRO 100 UNITS/ML SUBCUT SCH ×5 (06:00→23:53)
[2017-11-28] MEDS: METOCLOPRAMIDE HCL 10MG/2ML VIAL IV SCH ×3 (06:12→22:35)
[2017-11-28] MEDS: BLOOD SUGAR DIAGNOSTIC STRIP TEST SCH ×5 (06:18→23:52)
[2017-11-28 07:30] LABS: BASOPHILS % 0.5 % (0.0-2.0); EOSINOPHILS % 0.2 % (0.0-5.0); HEMOGLOBIN. 10.3 g/dL (12.0-16.0); MEAN CORPUSCULAR HEMOGLOBIN 33.4 pg (28.0-32.0); MEAN CORPUSCULAR VOLUME 100.3 fL (81.0-99.0); MEAN PLATELET VOLUME 10.3 fl (7.4-10.4); MONOCYTES % 10.5 % (2.0-8.0); NEUTROPHILS % 77.8 % (40.0-76.0); PLATELET 391 x1000/uL (130-400); RED BLOOD CELL COUNT 3.09 mill/uL (4.2-5.4); RED CELL DISTRIBUTION WIDTH 16.2 % (11.6-14.6)
[2017-11-28 08:06] LABS: CHLORIDE 103 mEq/L (98-107)
[2017-11-28 08:12] LABS: PHOSPHORUS 3.6 mg/dL (2.5-4.9)
[2017-11-28] MEDS: ENOXAPARIN 30MG/0.3ML SYR SUBCUT SCH ×2 (09:49→20:55)
[2017-11-28] MEDS: LEVETIRACETAM 500 MG in SODIUM CHLORIDE 0.9% 100 ML IV SCH ×2 (09:50→20:54)
[2017-11-28] MEDS: LACTOBACILLUS GG CAPSULE PO SCH (09:51)
[2017-11-28] MEDS: MIDODRINE HCL 5MG TABLET GT SCH ×3 (09:51→17:37)
[2017-11-28] MEDS: DIVALPROEX SODIUM 500MG DR TABLET PO SCH ×3 (09:52→17:36)
[2017-11-28] MEDS: FUROSEMIDE 40MG TABLET GT SCH (09:52)
[2017-11-28] MEDS: CARVEDILOL 3.125 MG TABLET PO SCH ×2 (09:52→20:56)
[2017-11-28] MEDS: ATORVASTATIN CALCIUM 10MG TABLET PO SCH (20:55)
[2017-11-29] VITALS (11 sets, daily range): BP systolic 92–115; BP diastolic 39–57
[2017-11-29] MEDS: INSULIN LISPRO 100 UNITS/ML SUBCUT SCH ×3 (06:00→17:11)
[2017-11-29] MEDS: METOCLOPRAMIDE HCL 10MG/2ML VIAL IV SCH ×2 (06:24→13:14)
[2017-11-29] MEDS: BLOOD SUGAR DIAGNOSTIC STRIP TEST SCH ×3 (06:24→17:02)
[2017-11-29] MEDS: CARVEDILOL 3.125 MG TABLET PO SCH (08:22)
[2017-11-29] MEDS: LACTOBACILLUS GG CAPSULE PO SCH (08:30)
[2017-11-29] MEDS: DIVALPROEX SODIUM 500MG DR TABLET PO SCH ×3 (08:30→17:16)
[2017-11-29] MEDS: FUROSEMIDE 40MG TABLET GT SCH (08:30)
[2017-11-29] MEDS: ENOXAPARIN 30MG/0.3ML SYR SUBCUT SCH (08:30)
[2017-11-29] MEDS: MIDODRINE HCL 5MG TABLET GT SCH ×3 (08:31→17:19)
[2017-11-29] MEDS: LEVETIRACETAM 500 MG in SODIUM CHLORIDE 0.9% 100 ML IV SCH (09:48)
[2017-11-29 09:52] LABS: BASOPHILS % 0.3 % (0.0-2.0); EOSINOPHILS % 0.7 % (0.0-5.0); HEMATOCRIT. 31.2 % (36.0-48.0); HEMOGLOBIN. 10.4 g/dL (12.0-16.0); LYMPHOCYTES % 15.2 % (20.0-50.0); MEAN CORPUSCULAR HEMOGLOBIN 33.2 pg (28.0-32.0); MEAN CORPUSCULAR VOLUME 99.2 fL (81.0-99.0); MEAN PLATELET VOLUME 9.9 fl (7.4-10.4); MONOCYTES % 12.8 % (2.0-8.0); PLATELET 367 x1000/uL (130-400); RED BLOOD CELL COUNT 3.15 mill/uL (4.2-5.4); RED CELL DISTRIBUTION WIDTH 16.2 % (11.6-14.6)
[2017-11-29 10:18] LABS: CHLORIDE 103 mEq/L (98-107)
[2017-11-29 11:30] LABS: PHOSPHORUS 3.7 mg/dL (2.5-4.9)
== END 2017-11-29 19:42 | DRG 3 ==
LOC: ER 09:09 → EDBEDREQSVC 09:28 → CVICU 12:16 → EDBEDREQ 12:22 → ENRESERV 12:40 → 5EST 11-24 22:37
PROVIDERS: ADMIT Internal Medicine; ATTEND Internal Medicine
PROC: 5A1955Z Respiratory Ventilation, Greater than 96 Consecutive Hours (ICD-10-PCS; 2017-11-11)
PROC: 0BH17EZ Insertion of Endotracheal Airway into Trachea, Via Natural or Artificial Opening (ICD-10-PCS; 2017-11-11)
PROC: 06HY33Z Insertion of Infusion Device into Lower Vein, Percutaneous Approach (ICD-10-PCS; 2017-11-11)
PROC: B54CZZA Ultrasonography of Left Lower Extremity Veins, Guidance (ICD-10-PCS; 2017-11-11)
PROC: 0D20XUZ Change Feeding Device in Upper Intestinal Tract, External Approach (ICD-10-PCS; 2017-11-16)
PROC: 0W9G3ZZ Drainage of Peritoneal Cavity, Percutaneous Approach (ICD-10-PCS; 2017-11-21)
PROC: 0B110F4 Bypass Trachea to Cutaneous with Tracheostomy Device, Open Approach (ICD-10-PCS; 2017-11-22)
PROC: 0GBJ0ZZ Excision of Thyroid Gland Isthmus, Open Approach (ICD-10-PCS; principal; 2017-11-22 14:00)
DX: A41.9 Sepsis, unspecified organism (principal); R65.21 Severe sepsis with septic shock; J96.01 Acute respiratory failure with hypoxia; J18.9 Pneumonia, unspecified organism; I21.A1 Myocardial infarction type 2; G92 Toxic encephalopathy; E43 Unspecified severe protein-calorie malnutrition; Z99.11 Dependence on respirator [ventilator] status; N39.0 Urinary tract infection, site not specified; N17.9 Acute kidney failure, unspecified; I50.30 Unspecified diastolic (congestive) heart failure; I13.0 Hypertensive heart and chronic kidney disease with heart failure and stage 1 through stage 4 chronic kidney disease, or unspecified chronic kidney disease; J44.0 Chronic obstructive pulmonary disease with (acute) lower respiratory infection; K56.7 Ileus, unspecified; R18.8 Other ascites; E87.0 Hyperosmolality and hypernatremia; K59.39 Other megacolon; N20.0 Calculus of kidney; R13.10 Dysphagia, unspecified; K76.9 Liver disease, unspecified; E78.5 Hyperlipidemia, unspecified; N18.2 Chronic kidney disease, stage 2 (mild); I48.0 Paroxysmal atrial fibrillation; R62.7 Adult failure to thrive; E87.6 Hypokalemia; E83.39 Other disorders of phosphorus metabolism; B96.4 Proteus (mirabilis) (morganii) as the cause of diseases classified elsewhere; F03.90 Unspecified dementia, unspecified severity, without behavioral disturbance, psychotic disturbance, mood disturbance, and anxiety; G40.909 Epilepsy, unspecified, not intractable, without status epilepticus; E11.22 Type 2 diabetes mellitus with diabetic chronic kidney disease; T65.891A Toxic effect of other specified substances, accidental (unintentional), initial encounter; Y92.89 Other specified places as the place of occurrence of the external cause; Z93.1 Gastrostomy status; Z86.718 Personal history of other venous thrombosis and embolism; Z86.73 Personal history of transient ischemic attack (TIA), and cerebral infarction without residual deficits; Z82.49 Family history of ischemic heart disease and other diseases of the circulatory system; Z83.3 Family history of diabetes mellitus; Z79.82 Long term (current) use of aspirin; Z79.899 Other long term (current) drug therapy
CPT/HCPCS: 31500; 36415; 36556; 36569; 36600; 49083; 70450; 71045; 74018; 74176; 76700; 76937; 80048; 80053; 80156; 80165; 80184; 80185; 80202; 81003; 82040; 82140; 82375; 82542; 82607; 82746; 82805; 82962; 83036; 83605; 83615; 83735; 83880; 84100; 84145; 84155; 84165; 84439; 84443; 84481; 84484; 85025; 85610; 85730; 86850; 86900; 87015; 87040; 87045; 87070; 87077; 87086; 87102; 87186; 87205; 87427; 87449; 88108; 88312; 89050; 89055; 93005; 93970; 94002; 94003; 94640; 96361; 96365; 96366; 96367; 96375; 99291; A6261; C1769; J0295; J0692; J1650; J1815; J1940; J1953; J2250; J2370; J2405; J2543; J2704; J2765; J3010; J3370; J3475; J3480; J3490; J7030; J7040; J7050; J7060; J7070; J7620; L8514